=== PATIENT | female | born 1990 | race Hispanic/Latino ===

== ENCOUNTER 2017-11-09 12:00 | Emergency (ER) | payer MEDICAID ==
[~2017-11-09 12:00] MED LIST: METO5 PO
[2017-11-09 12:18] LABS: APPEARANCE,URINE Clear (CLEAR); BILIRUBIN,URINE Negative (NEGATIVE); COLOR,URINE Yellow (YELLOW); GLUCOSE, URINE (UA) >=1000 mg/dL (NEGATIVE); KETONES,URINE >=80 mg/dL (NEGATIVE); LEUKOCYTE ESTERASE ,URINE Negative (NEGATIVE); NITRATE,URINE Negative (NEGATIVE); OCCULT BLOOD,URINE Small (NEGATIVE); PROTEIN,URINE POS 2+ (NEGATIVE)
[2017-11-09 12:19] LABS: BACTERIA,URINE Rare /HPF (None Seen); RBC,URINE 0-1 /HPF (0-1); SQUAMOUS EPITHELIAL CELL,UR Rare /LPF (0-2); WBC,URINE 0-1 /HPF (0-1)
[2017-11-09] MEDS ORDERED: ONDANSETRON HCL 4 MG/2 ML VIAL ONE (12:23)
[2017-11-09] MEDS ORDERED: SODIUM CHLORIDE 0.9% 1000ML 2,000 ML IV ONE (12:23)
[2017-11-09 12:25] LABS: HCG,QUAL RESULT NEGATIVE (NEGATIVE)
[2017-11-09 12:28] LABS: BASOPHILS % (AUTO) 0.9 % (0.0-5.0); EOSINOPHILS % (AUTO) 0.3 % (0.0-8.0); HEMATOCRIT 37.5 % (36-48); LYMPHOCYTES % (AUTO) 14.1 % (21.0-51.0); MEAN CORPUSCULAR HEMOGLOBIN 29.9 pg (27.0-33.0); MEAN CORPUSCULAR HGB CONC 33.1 g/dL (32.0-36.0); MEAN CORPUSCULAR VOLUME 90.3 fL (79-99); MONOCYTES % (AUTO) 4.3 % (3.0-13.0); NEUTROPHILS % (AUTO) 80.4 % (40.0-77.0); PLATELET COUNT (AUTO) 451 K/uL (130-400); RED BLOOD CELL COUNT(AUTO) 4.15 MIL/uL (4.00-5.50); WHITE BLOOD COUNT (AUTO) 13.7 K/uL (4.8-10.8)
[2017-11-09 12:37] LABS: CREATININE 0.7 mg/dL (0.5-1.5); POTASSIUM 3.5 mmol/L (3.5-5.1)
[2017-11-09 12:41] LABS: ALBUMIN 3.4 g/dL (3.5-5.0); BILIRUBIN,TOTAL 0.3 mg/dL (0.2-1.0); TOTAL PROTEIN, SERUM 7.5 g/dL (6.0-8.3)
[2017-11-09 13:39] LABS: AMPHET/METH SCREEN,URINE NEGATIVE (NEGATIVE); BARBITURATE SCREEN, URINE NEGATIVE (NEGATIVE); BENZODIAZEPINES SCREEN,URINE NEGATIVE (NEGATIVE); CANNABINOID SCREEN,URINE POSITIVE (NEGATIVE); COCAINE SCREEN,URINE NEGATIVE (NEGATIVE); OPIATE SCREEN,URINE POSITIVE (NEGATIVE); PHENCYCLIDINE SCREEN,URINE NEGATIVE (NEGATIVE)
== END 2017-11-09 14:02 | disposition home or self-care (01) ==
LOC: EDH 12:00
DX: K86.1 Other chronic pancreatitis (principal); M54.9 Dorsalgia, unspecified; E11.9 Type 2 diabetes mellitus without complications
CPT/HCPCS: 36415; 80053; 80305; 81001; 81025; 83690; 85025; 96361; 96374; 99284; J2405; J7030

== ENCOUNTER 2017-12-01 18:12 | Inpatient (IN) | payer MEDICAID ==
[~2017-12-01] VITALS: Ht 147.3 cm; Wt 54.4 kg
[2017-12-01 18:56] LABS: BASOPHILS % (AUTO) 0.5 % (0.0-5.0); HEMATOCRIT 41.1 % (36-48); LYMPHOCYTES % (AUTO) 11.4 % (21.0-51.0); MEAN CORPUSCULAR HEMOGLOBIN 30.4 pg (27.0-33.0); MEAN CORPUSCULAR VOLUME 89.4 fL (79-99); MONOCYTES % (AUTO) 4.4 % (3.0-13.0); NEUTROPHILS % (AUTO) 83.7 % (40.0-77.0); PLATELET COUNT (AUTO) 394 K/uL (130-400); RED BLOOD CELL COUNT(AUTO) 4.59 MIL/uL (4.00-5.50); RED CELL DISTRIBUTION WIDTH 14.2 % (11.0-15.5); WHITE BLOOD COUNT (AUTO) 14.6 K/uL (4.8-10.8)
[2017-12-01] MEDS ORDERED: SODIUM CHLORIDE 0.9% 1000ML 2,000 ML IV ONE (19:09)
[2017-12-01] MEDS ORDERED: ONDANSETRON HCL 4 MG/2 ML VIAL ONE (19:09)
[2017-12-01] MEDS ORDERED: KETOROLAC TROMETHAMINE 30MG/ML ONE (19:09)
[2017-12-01 19:12] LABS: ALBUMIN 4.1 g/dL (3.5-5.0); BILIRUBIN,TOTAL 0.4 mg/dL (0.2-1.0); CREATININE 0.8 mg/dL (0.5-1.5); POTASSIUM 3.7 mmol/L (3.5-5.1); TOTAL PROTEIN, SERUM 7.8 g/dL (6.0-8.3)
[2017-12-01] MEDS ORDERED: MORPHINE SULFATE 4 MG/1ML SYG ONE (19:18)
[2017-12-01] MEDS ORDERED: MORPHINE SULFATE 2 MG/ML 1ML SYG ONE (21:53)
[2017-12-01 22:14] LABS: APPEARANCE,URINE Clear (CLEAR); BILIRUBIN,URINE Negative (NEGATIVE); COLOR,URINE Yellow (YELLOW); GLUCOSE, URINE (UA) >=1000 mg/dL (NEGATIVE); KETONES,URINE >=80 mg/dL (NEGATIVE); LEUKOCYTE ESTERASE ,URINE Negative (NEGATIVE); NITRATE,URINE Negative (NEGATIVE); OCCULT BLOOD,URINE Small (NEGATIVE); PROTEIN,URINE POS 2+ (NEGATIVE); UROBILINOGEN,URINE 0.2 mg/dL (0.2-1.0)
[2017-12-01 22:29] LABS: BACTERIA,URINE Few /HPF (None Seen); WBC,URINE 0-1 /HPF (0-1)
[2017-12-01 22:30] LABS: SQUAMOUS EPITHELIAL CELL,UR Few /LPF (0-2)
[2017-12-01 22:45] VITALS: BP 140/77
[2017-12-01] MEDS ORDERED: MORPHINE SULFATE 2 MG/ML 1ML SYG IM ONE (23:15)
[2017-12-01] MEDS ORDERED: MORPHINE SULFATE 2 MG/ML 1ML SYG IV ONE (23:45)
[2017-12-02] MEDS ORDERED: NITROGLYCERIN 0.4 MG SL TAB SL PRN (01:00)
[2017-12-02] MEDS ORDERED: GLUCAGON 1MG KIT 1 MG ML IM PRN (01:00)
[2017-12-02] MEDS ORDERED: POTASSIUM CHLORIDE 20 MEQ ERTAB PO PRN (01:00)
[2017-12-02] MEDS ORDERED: MORPHINE SULFATE 4 MG/1ML SYG IVP PRN (01:00)
[2017-12-02] MEDS: SODIUM CHLORIDE 0.9% 1000ML 1,000 ML IV SCH ×4 (01:00→21:00)
[2017-12-02] MEDS ORDERED: DEXTROSE 50%-WATER 50 ML DISP.SYRIN IV PRN (01:00)
[2017-12-02] MEDS ORDERED: SODIUM CHLORIDE 0.9% 10 ML VIAL IVP SCH (01:00)
[2017-12-02] MEDS ORDERED: HYDRALAZINE HCL 20 MG/ML VIAL IV PRN (01:00)
[2017-12-02] MEDS: LEVOFLOXACIN 500 MG/D5W 100 ML 100 ML IV SCH (01:32)
[2017-12-02] MEDS ORDERED: INSULIN HUMULIN R 100 UNIT/ML 3ML ONE (01:36)
[2017-12-02] MEDS: INSULIN HUMULIN R 100 UNIT/ML 3ML SQ SCH ×4 (01:38→21:21)
[2017-12-02] MEDS: ONDANSETRON HCL 4 MG/2 ML VIAL IVP PRN ×2 (02:32→21:11)
[2017-12-02 04:00] VITALS: BP 161/90
[2017-12-02] MEDS ORDERED: MORPHINE SULFATE 2 MG/ML 1ML SYG IVP PRN ×2 (04:00→14:45)
[2017-12-02 05:17] LABS: HEMATOCRIT 39.2 % (36-48); MEAN CORPUSCULAR HEMOGLOBIN 30.7 pg (27.0-33.0); MEAN CORPUSCULAR HGB CONC 33.4 g/dL (32.0-36.0); MEAN CORPUSCULAR VOLUME 91.8 fL (79-99); PLATELET COUNT (AUTO) 391 K/uL (130-400); RED BLOOD CELL COUNT(AUTO) 4.27 MIL/uL (4.00-5.50); RED CELL DISTRIBUTION WIDTH 14.1 % (11.0-15.5); WHITE BLOOD COUNT (AUTO) 16.2 K/uL (4.8-10.8)
[2017-12-02 05:34] LABS: ALBUMIN 4.1 g/dL (3.5-5.0); BILIRUBIN,TOTAL 0.4 mg/dL (0.2-1.0); POTASSIUM 3.3 mmol/L (3.5-5.1); TOTAL PROTEIN, SERUM 8.1 g/dL (6.0-8.3)
[2017-12-02] MEDS ORDERED: MEPERIDINE-PF 25 MG/ML SYG ONE (05:37)
[2017-12-02 08:00] VITALS: BP 140/89
[2017-12-02] MEDS: MEPERIDINE-PF 25 MG/ML SYG IVP PRN ×2 (08:58→12:02)
[2017-12-02] MEDS: ENOXAPARIN SODIUM 40 MG/0.4 ML SYRINGE SQ SCH (09:00)
[2017-12-02] MEDS: FAMOTIDINE/PF 20 MG/2 ML VIAL IV SCH ×2 (09:00→21:14)
[2017-12-02] MEDS ORDERED: FAMOTIDINE 20MG TAB 20 MG TAB PO SCH (09:00)
[2017-12-02] MEDS ORDERED: LIDOCAINE HCL-MPF 1% 2ML VIAL ONE (10:24)
[2017-12-02] MEDS: METOCLOPRAMIDE 10 MG/2 ML VIAL IVP SCH ×2 (11:30→16:15)
[2017-12-02 12:00] VITALS: BP 149/99
[2017-12-02] MEDS: POTASSIUM CHLORIDE 20MEQ/100ML 100 ML IV PRN (12:03)
[2017-12-02] MEDS ORDERED: PHARMACY COMMUNICATION MISC SCH (14:45)
[2017-12-02] MEDS ORDERED: MAGNESIUM CITRATE 296 ML SOLUTION PO ONE (14:45)
[2017-12-02] MEDS: MORPHINE SULFATE 4 MG/1ML SYG IV PRN ×4 (15:04→23:59)
[2017-12-02] MEDS ORDERED: COMPOUND PO MISCELLANEOUS 1 EACH MISC MISC PRN (15:15)
[2017-12-02 16:17] VITALS: BP 129/78
[2017-12-02] MEDS: LIDOCAINE HCL 2% VISCOUS 30 ML, MAG HYDROX/AL HYDROX/SIMETH 30 ML, DICYCLOMINE HCL 20 MG PO SCH ×6 (16:48→16:51)
[2017-12-02 19:50] VITALS: BP 137/77
[2017-12-02] MEDS ORDERED: INSULIN GLARGINE 100 UNITS/ML 10 ML VIAL SQ SCH (21:00)
[2017-12-03] MEDS: LEVOFLOXACIN 500 MG/D5W 100 ML 100 ML IV SCH
[2017-12-03 00:35] VITALS: BP 164/94
[2017-12-03] MEDS: MORPHINE SULFATE 4 MG/1ML SYG IV PRN ×2 (03:00→05:42)
[2017-12-03] MEDS: SODIUM CHLORIDE 0.9% 1000ML 1,000 ML IV SCH ×3 (03:07→11:02)
[2017-12-03 03:35] VITALS: BP 149/83
[2017-12-03] MEDS: ONDANSETRON HCL 4 MG/2 ML VIAL IVP PRN ×2 (05:45→18:22)
[2017-12-03] MEDS: INSULIN HUMULIN R 100 UNIT/ML 3ML SQ SCH ×4 (06:29→21:00)
[2017-12-03] MEDS: METOCLOPRAMIDE 10 MG/2 ML VIAL IVP SCH ×3 (07:30→18:14)
[2017-12-03 07:50] LABS: HEMATOCRIT 41.2 % (36-48); MEAN CORPUSCULAR HEMOGLOBIN 30.3 pg (27.0-33.0); MEAN CORPUSCULAR HGB CONC 33.3 g/dL (32.0-36.0); MEAN CORPUSCULAR VOLUME 91.1 fL (79-99); PLATELET COUNT (AUTO) 321 K/uL (130-400); RED BLOOD CELL COUNT(AUTO) 4.52 MIL/uL (4.00-5.50); RED CELL DISTRIBUTION WIDTH 13.8 % (11.0-15.5); WHITE BLOOD COUNT (AUTO) 11.1 K/uL (4.8-10.8)
[2017-12-03 08:59] VITALS: BP 159/79
[2017-12-03] MEDS: ENOXAPARIN SODIUM 40 MG/0.4 ML SYRINGE SQ SCH (09:00)
[2017-12-03 09:05] LABS: ALBUMIN 3.3 g/dL (3.5-5.0); BILIRUBIN,TOTAL 0.3 mg/dL (0.2-1.0); CREATININE 0.5 mg/dL (0.5-1.5); POTASSIUM 3.3 mmol/L (3.5-5.1); TOTAL PROTEIN, SERUM 6.8 g/dL (6.0-8.3)
[2017-12-03] MEDS: HYDROMORPHONE 1 MG/1 ML AMP IVP PRN ×5 (09:09→21:46)
[2017-12-03] MEDS: FAMOTIDINE/PF 20 MG/2 ML VIAL IV SCH ×2 (09:16→21:46)
[2017-12-03 17:12] VITALS: BP 135/78
[2017-12-03] MEDS: KETOROLAC TROMETHAMINE 15MG/ML IV PRN (19:56)
[2017-12-03 20:00] VITALS: BP 131/77
[2017-12-03] MEDS: INSULIN GLARGINE 100 UNITS/ML 10 ML VIAL SQ SCH (21:52)
[2017-12-03 23:44] VITALS: BP 99/62
[2017-12-04] MEDS: LEVOFLOXACIN 500 MG/D5W 100 ML 100 ML IV SCH (01:16)
[2017-12-04] MEDS: HYDROMORPHONE 1 MG/1 ML AMP IVP PRN ×3 (01:17→06:49)
[2017-12-04] MEDS: KETOROLAC TROMETHAMINE 15MG/ML IV PRN ×2 (03:26→09:45)
[2017-12-04] MEDS: SODIUM CHLORIDE 0.9% 1000ML 1,000 ML IV SCH ×5 (03:26→22:36)
[2017-12-04 04:00] VITALS: BP 134/75
[2017-12-04 04:53] LABS: CREATININE 0.6 mg/dL (0.5-1.5)
[2017-12-04 05:01] LABS: POTASSIUM 2.7 mmol/L (3.5-5.1)
[2017-12-04] MEDS ORDERED: LIDOCAINE HCL-MPF 1% 2ML VIAL ONE (05:38)
[2017-12-04] MEDS: POTASSIUM CHLORIDE 20MEQ/100ML 100 ML IV PRN ×2 (05:49→13:30)
[2017-12-04] MEDS: METOCLOPRAMIDE 10 MG/2 ML VIAL IVP SCH ×3 (06:14→16:43)
[2017-12-04] MEDS: INSULIN HUMULIN R 100 UNIT/ML 3ML SQ SCH ×4 (06:15→22:44)
[2017-12-04] MEDS ORDERED: BISACODYL 5 MG TABLET.DR PO PRN (08:45)
[2017-12-04] MEDS ORDERED: MAGNESIUM 2GM PREMIX 50ML 50 ML IV SCH (08:45)
[2017-12-04] MEDS ORDERED: TRAMADOL HCL 50 MG TABLET PO PRN (08:45)
[2017-12-04] MEDS: ENOXAPARIN SODIUM 40 MG/0.4 ML SYRINGE SQ SCH (09:00)
[2017-12-04 09:39] VITALS: BP 123/66
[2017-12-04] MEDS: FAMOTIDINE/PF 20 MG/2 ML VIAL IV SCH ×2 (09:45→22:36)
[2017-12-04] MEDS ORDERED: HYDROMORPHONE HCL 0.5 MG/0.5 ML ML ONE (10:44)
[2017-12-04 12:00] VITALS: BP 147/86
[2017-12-04] MEDS: SIMETHICONE 80 MG TAB.CHEW PO SCH ×3 (13:29→22:36)
[2017-12-04] MEDS: HYDROMORPHONE HCL 0.5 MG/0.5 ML ML IVP PRN ×3 (15:04→22:28)
[2017-12-04] MEDS: LIDOCAINE HCL 2% VISCOUS 30 ML, MAG HYDROX/AL HYDROX/SIMETH 30 ML, DICYCLOMINE HCL 20 MG PO SCH ×3 (16:42)
[2017-12-04 20:00] VITALS: BP 150/86
[2017-12-04] MEDS: INSULIN GLARGINE 100 UNITS/ML 10 ML VIAL SQ SCH (22:45)
[2017-12-04 23:59] VITALS: BP 149/92
[2017-12-05] MEDS: HYDROMORPHONE HCL 0.5 MG/0.5 ML ML IVP PRN ×7 (02:12→22:17)
[2017-12-05] MEDS: LEVOFLOXACIN 500 MG/D5W 100 ML 100 ML IV SCH (02:12)
[2017-12-05 03:54] LABS: CREATININE 0.8 mg/dL (0.5-1.5)
[2017-12-05 04:00] VITALS: BP 172/92
[2017-12-05 04:27] LABS: POTASSIUM 2.7 mmol/L (3.5-5.1)
[2017-12-05] MEDS ORDERED: LIDOCAINE HCL-MPF 1% 2ML VIAL ONE ×2 (05:08→15:36)
[2017-12-05] MEDS: POTASSIUM CHLORIDE 20MEQ/100ML 100 ML IV PRN ×2 (05:12→15:46)
[2017-12-05] MEDS: POTASSIUM CHLORIDE 10% ELIXIR 20 MEQ/15 ML UDCUP PO PRN ×3 (05:12→18:10)
[2017-12-05] MEDS: INSULIN HUMULIN R 100 UNIT/ML 3ML SQ SCH ×4 (06:13→22:31)
[2017-12-05] MEDS: METOCLOPRAMIDE 10 MG/2 ML VIAL IVP SCH ×3 (06:36→17:00)
[2017-12-05 08:00] VITALS: BP 176/100
[2017-12-05] MEDS: SIMETHICONE 80 MG TAB.CHEW PO SCH ×4 (08:43→22:17)
[2017-12-05] MEDS: ENOXAPARIN SODIUM 40 MG/0.4 ML SYRINGE SQ SCH (09:00)
[2017-12-05] MEDS ORDERED: NS-20 MEQ KCL 1000ML 1,000 ML IV SCH (09:30)
[2017-12-05 11:00] VITALS: BP 163/78
[2017-12-05] MEDS: FAMOTIDINE/PF 20 MG/2 ML VIAL IV SCH ×2 (11:20→22:17)
[2017-12-05 16:00] VITALS: BP 156/90
[2017-12-05 20:00] VITALS: BP 132/82
[2017-12-05] MEDS: INSULIN GLARGINE 100 UNITS/ML 10 ML VIAL SQ SCH (22:31)
[2017-12-06] VITALS: BP 154/98
[2017-12-06] MEDS ORDERED: NS-20 MEQ KCL 1000ML 1,000 ML IV SCH (01:00)
[2017-12-06] MEDS ORDERED: POTASSIUM CHLORIDE 20 MEQ in SODIUM CHLORIDE 0.9% 1000ML 1,000 ML IV SCH (01:00)
[2017-12-06] MEDS: HYDROMORPHONE HCL 0.5 MG/0.5 ML ML IVP PRN ×5 (01:20→16:12)
[2017-12-06] MEDS: ONDANSETRON HCL 4 MG/2 ML VIAL IVP PRN (01:40)
[2017-12-06 04:00] VITALS: BP 125/64
[2017-12-06 04:35] LABS: CREATININE 0.7 mg/dL (0.5-1.5); POTASSIUM 3.4 mmol/L (3.5-5.1)
[2017-12-06] MEDS: METOCLOPRAMIDE 10 MG/2 ML VIAL IVP SCH ×3 (07:30→17:00)
[2017-12-06] MEDS: INSULIN HUMULIN R 100 UNIT/ML 3ML SQ SCH ×2 (07:30→11:30)
[2017-12-06 08:00] VITALS: BP 130/78
[2017-12-06] MEDS: POTASSIUM CHLORIDE 10% ELIXIR 20 MEQ/15 ML UDCUP PO PRN (08:55)
[2017-12-06] MEDS: FAMOTIDINE/PF 20 MG/2 ML VIAL IV SCH (08:56)
[2017-12-06] MEDS: SIMETHICONE 80 MG TAB.CHEW PO SCH ×2 (08:57→13:00)
[2017-12-06] MEDS: ENOXAPARIN SODIUM 40 MG/0.4 ML SYRINGE SQ SCH (09:00)
[2017-12-06] MEDS ORDERED: ACETAMINOPHEN-CODEINE 300/30MG TAB PO PRN ×2 (09:45)
[2017-12-06 11:00] VITALS: BP 161/104
[2017-12-06 16:00] VITALS: BP 145/98
== END 2017-12-06 18:10 | disposition left against medical advice (07) | DRG 282 ==
LOC: EDH 18:12 → OBSVTOIN 18:13 → EDHIP 18:13 → 3DH 22:28
PROVIDERS: ADMIT Internal Medicine; ATTEND Internal Medicine
DX: K85.90 Acute pancreatitis without necrosis or infection, unspecified (principal); K31.84 Gastroparesis; E11.43 Type 2 diabetes mellitus with diabetic autonomic (poly)neuropathy; E11.65 Type 2 diabetes mellitus with hyperglycemia; K86.1 Other chronic pancreatitis; Z91.19 Patient's noncompliance with other medical treatment and regimen; F31.9 Bipolar disorder, unspecified; Z79.4 Long term (current) use of insulin; E87.6 Hypokalemia; K59.00 Constipation, unspecified; Z90.49 Acquired absence of other specified parts of digestive tract; F19.10 Other psychoactive substance abuse, uncomplicated; Z53.21 Procedure and treatment not carried out due to patient leaving prior to being seen by health care provider; Z28.21 Immunization not carried out because of patient refusal
CPT/HCPCS: 36415; 74176; 80048; 80053; 81001; 81025; 82150; 82948; 83690; 83735; 84132; 85025; 85027; J1170; J1650; J1815; J1885; J1956; J2175; J2270; J2405; J2765; J3475; J3480; J3490; J7030

== ENCOUNTER 2018-02-09 06:45 | Emergency (ER) | payer MEDICAID ==
[2018-02-09 07:18] LABS: BASOPHILS % (AUTO) 0.3 % (0.0-5.0); HEMATOCRIT 38.9 % (36-48); LYMPHOCYTES % (AUTO) 10.9 % (21.0-51.0); MEAN CORPUSCULAR HEMOGLOBIN 30.7 pg (27.0-33.0); MEAN CORPUSCULAR HGB CONC 34.7 g/dL (32.0-36.0); MEAN CORPUSCULAR VOLUME 88.6 fL (79-99); MONOCYTES % (AUTO) 3.6 % (3.0-13.0); NEUTROPHILS % (AUTO) 85.2 % (40.0-77.0); PLATELET COUNT (AUTO) 331 K/uL (130-400); RED BLOOD CELL COUNT(AUTO) 4.39 MIL/uL (4.00-5.50); RED CELL DISTRIBUTION WIDTH 13.3 % (11.0-15.5); WHITE BLOOD COUNT (AUTO) 16.8 K/uL (4.8-10.8)
[2018-02-09] MEDS ORDERED: ONDANSETRON HCL MDV 20ML 2 MG/ML VIAL ONE (07:26)
[2018-02-09] MEDS ORDERED: MORPHINE SULFATE 4 MG/1ML SYG ONE ×2 (07:26→08:23)
[2018-02-09] MEDS ORDERED: SODIUM CHLORIDE 0.9% 1000ML 1,000 ML IV ONE ×2 (07:26→08:53)
[2018-02-09 07:32] LABS: APPEARANCE,URINE Clear (CLEAR); BILIRUBIN,URINE Negative (NEGATIVE); COLOR,URINE Yellow (YELLOW); GLUCOSE, URINE (UA) >=1000 mg/dL (NEGATIVE); KETONES,URINE >=160 mg/dL (NEGATIVE); LEUKOCYTE ESTERASE ,URINE Negative (NEGATIVE); NITRATE,URINE Negative (NEGATIVE); OCCULT BLOOD,URINE Moderate (NEGATIVE); PROTEIN,URINE 300 (NEGATIVE); UROBILINOGEN,URINE 0.2 mg/dL (0.2-1.0)
[2018-02-09 07:34] LABS: AMPHET/METH SCREEN,URINE NEGATIVE (NEGATIVE); BARBITURATE SCREEN, URINE NEGATIVE (NEGATIVE); BENZODIAZEPINES SCREEN,URINE NEGATIVE (NEGATIVE); CANNABINOID SCREEN,URINE POSITIVE (NEGATIVE); COCAINE SCREEN,URINE NEGATIVE (NEGATIVE); OPIATE SCREEN,URINE NEGATIVE (NEGATIVE); PHENCYCLIDINE SCREEN,URINE NEGATIVE (NEGATIVE)
[2018-02-09 07:49] LABS: BACTERIA,URINE Rare /HPF (None Seen); SQUAMOUS EPITHELIAL CELL,UR Rare /HPF (0-2)
[2018-02-09 07:54] LABS: ALBUMIN 4.1 g/dL (3.5-5.0); BILIRUBIN,TOTAL 0.3 mg/dL (0.2-1.0); CREATININE 1.1 mg/dL (0.5-1.5); POTASSIUM 3.3 mmol/L (3.5-5.1)
[2018-02-09] MEDS ORDERED: INSULIN HUMULIN R 100 UNIT/ML 3ML ONE (08:10)
== END 2018-02-09 11:43 | disposition home or self-care (01) ==
LOC: EDH 06:45
DX: R11.2 Nausea with vomiting, unspecified (principal); F12.10 Cannabis abuse, uncomplicated; E11.65 Type 2 diabetes mellitus with hyperglycemia; Z90.49 Acquired absence of other specified parts of digestive tract; Z98.890 Other specified postprocedural states; Z72.0 Tobacco use
CPT/HCPCS: 36415; 76700; 80053; 80305; 81001; 81025; 82009; 82948; 83690; 85025; 96361; 96374; 96375; 96376; 99285; J1815; J2270 ×2; J7030 ×2

== ENCOUNTER 2018-04-07 21:14 | Emergency (ER) | payer MEDICAID | END 2018-04-07 21:40 | disposition home or self-care (01) | LOC: EDH 21:14 | DX: E11.65 Type 2 diabetes mellitus with hyperglycemia (principal) | CPT/HCPCS: 82948 ==

== ENCOUNTER 2018-07-02 00:29 | Day surgery (SDC) | payer MEDICAID ==
[~2018-07-02] VITALS: Ht 149.9 cm; Wt 64.9 kg
[2018-07-02] VITALS (16 sets, daily range): BP systolic 114–160; BP diastolic 76–106
[~2018-07-02 00:29] MED LIST changes: +INSU100I15 SQ; -METO5 PO
[2018-07-02 01:33] LABS: APPEARANCE,URINE Cloudy (CLEAR); BILIRUBIN,URINE Negative (NEGATIVE); COLOR,URINE Yellow (YELLOW); GLUCOSE, URINE (UA) 250 mg/dL (NEGATIVE); KETONES,URINE Negative (NEGATIVE); LEUKOCYTE ESTERASE ,URINE Negative (NEGATIVE); NITRATE,URINE Negative (NEGATIVE); OCCULT BLOOD,URINE Large (NEGATIVE); PROTEIN,URINE 300 (NEGATIVE); UROBILINOGEN,URINE 0.2 mg/dL (0.2-1.0)
[2018-07-02 01:46] LABS: BACTERIA,URINE Few /HPF (None Seen); WBC,URINE 0-1 /HPF (0-1)
[2018-07-02] MEDS ORDERED: SODIUM CHLORIDE 0.9% 1000ML 1,000 ML IV ONE ×2 (01:58→07:50)
[2018-07-02 02:05] LABS: BASOPHILS % (AUTO) 0.7 % (0.0-5.0); EOSINOPHILS % (AUTO) 1.9 % (0.0-8.0); HEMATOCRIT 35.2 % (36-48); MEAN CORPUSCULAR HEMOGLOBIN 30.2 pg (27.0-33.0); MEAN CORPUSCULAR HGB CONC 33.3 g/dL (32.0-36.0); MEAN CORPUSCULAR VOLUME 90.6 fL (79-99); MONOCYTES % (AUTO) 6.7 % (3.0-13.0); NEUTROPHILS % (AUTO) 62.7 % (40.0-77.0); PLATELET COUNT (AUTO) 304 K/uL (130-400); RED BLOOD CELL COUNT(AUTO) 3.88 MIL/uL (4.00-5.50); RED CELL DISTRIBUTION WIDTH 13.7 % (11.0-15.5); WHITE BLOOD COUNT (AUTO) 11.3 K/uL (4.8-10.8)
[2018-07-02 02:18] LABS: CREATININE 0.7 mg/dL (0.5-1.5); POTASSIUM 3.8 mmol/L (3.5-5.1)
[2018-07-02 02:21] LABS: INR 0.88 (0.85-1.15); PARTIAL THROMBOPLASTIN TIME 26.7 SEC (26.3-35.5); PROTHROMBIN TIME 9.3 SEC (9.6-11.6)
[2018-07-02 02:43] LABS: ALBUMIN 2.8 g/dL (3.5-5.0); BILIRUBIN,TOTAL 0.1 mg/dL (0.2-1.0); TOTAL PROTEIN, SERUM 6.8 g/dL (6.0-8.3)
[2018-07-02] MEDS ORDERED: CEFTRIAXONE SODIUM 1 GM ONE (03:46)
[2018-07-02] MEDS ORDERED: ONDANSETRON HCL 4 MG/2 ML VIAL ONE ×2 (03:46→10:22)
[2018-07-02] MEDS ORDERED: MORPHINE SULFATE 4 MG/1ML SYG ONE ×2 (03:47→06:07)
[2018-07-02] MEDS ORDERED: SODIUM CHLORIDE 0.9% 1000ML 1,000 ML IV SCH (06:00)
[2018-07-02] MEDS ORDERED: MEPERIDINE-PF 50 MG/ML SYG IM PRN (08:30)
[2018-07-02] MEDS ORDERED: PROMETHAZINE HCL 25 MG/ML 1ML AMPULE IM PRN (08:30)
[2018-07-02] MEDS ORDERED: PROMETHAZINE HCL 25 MG/ML 1ML AMPULE IM ONE (08:39)
[2018-07-02] MEDS ORDERED: MEPERIDINE-PF 50 MG/ML SYG ONE (08:40)
[2018-07-02 09:30] LABS: AMPHET/METH SCREEN,URINE NEGATIVE (NEGATIVE); BARBITURATE SCREEN, URINE NEGATIVE (NEGATIVE); BENZODIAZEPINES SCREEN,URINE NEGATIVE (NEGATIVE); CANNABINOID SCREEN,URINE POSITIVE (NEGATIVE); COCAINE SCREEN,URINE NEGATIVE (NEGATIVE); OPIATE SCREEN,URINE NEGATIVE (NEGATIVE); PHENCYCLIDINE SCREEN,URINE NEGATIVE (NEGATIVE)
[2018-07-02] MEDS ORDERED: PROPOFOL 10 MG/ML 20ML VIAL IV ONE ×2 (10:22→11:49)
[2018-07-02] MEDS ORDERED: SUCCINYLCHOLINE 200MG/10ML SYR ONE (10:22)
[2018-07-02] MEDS ORDERED: LIDOCAINE PF 2% 5ML ABBOJECT ONE (10:22)
[2018-07-02] MEDS ORDERED: CEFAZOLIN SODIUM 1 GM VIAL ONE (11:27)
[2018-07-02] MEDS ORDERED: MIDAZOLAM HCL 1 MG/ML 2ML VIAL ONE (11:32)
[2018-07-02] MEDS ORDERED: CEFAZOLIN SODIUM 1 GM VIAL IVP ONE (11:40)
[2018-07-02] MEDS ORDERED: SUB TO ALBUTEROL 2.5MG/3ML NEBULES PER P&T IH ONE (11:46)
[2018-07-02] MEDS ORDERED: FENTANYL CITRATE PF 50 MCG/1 ML 2ML VIAL ONE ×2 (12:41→12:53)
[2018-07-02] MEDS ORDERED: ACETAMINOPHEN-CODEINE 300/30MG TAB ONE (14:39)
== END 2018-07-02 14:30 | disposition home or self-care (01) ==
LOC: DAH 00:29 → EDH 00:29 → UNDOADMOB 00:30 → EDHIP 00:30 → UNDOADMOB 05:40 → WSH 08:05 → EDHIP 08:05 → DAH 14:30
PROVIDERS: ATTEND Obstetrics & Gynecology
DX: O03.4 Incomplete spontaneous abortion without complication (principal); E11.9 Type 2 diabetes mellitus without complications; E11.10 Type 2 diabetes mellitus with ketoacidosis without coma; I10 Essential (primary) hypertension; Z90.49 Acquired absence of other specified parts of digestive tract; Z98.890 Other specified postprocedural states; Z79.4 Long term (current) use of insulin; Z79.899 Other long term (current) drug therapy; K21.9 Gastro-esophageal reflux disease without esophagitis; Z87.891 Personal history of nicotine dependence
CPT/HCPCS: 36415; 59812; 76801; 80053; 80305; 81001; 82948 ×2; 83605; 84702; 85025; 85610; 85730; 86850; 86900; 86901; 87040 ×2; 88305; A4218; A4351; A4606; J0330; J0690 ×2; J0696; J2001; J2175; J2250; J2270 ×2; J2405 ×2; J2550; J2704 ×2; J3010 ×2; J7030 ×2

== ENCOUNTER 2018-08-28 05:49 | Emergency (ER) | payer MEDICAID ==
[2018-08-28] MEDS ORDERED: SODIUM CHLORIDE 0.9% 1000ML 1,000 ML IV ONE ×2 (06:00→06:49)
[2018-08-28] MEDS ORDERED: ONDANSETRON HCL 4 MG/2 ML VIAL ONE (06:00)
[2018-08-28 06:23] LABS: BASOPHILS % (AUTO) 1.2 % (0.0-5.0); EOSINOPHILS % (AUTO) 0.1 % (0.0-8.0); HEMATOCRIT 43.4 % (36-48); LYMPHOCYTES % (AUTO) 14.3 % (21.0-51.0); MEAN CORPUSCULAR HEMOGLOBIN 30.5 pg (27.0-33.0); MEAN CORPUSCULAR HGB CONC 33.6 g/dL (32.0-36.0); MEAN CORPUSCULAR VOLUME 90.7 fL (79-99); MONOCYTES % (AUTO) 4.8 % (3.0-13.0); NEUTROPHILS % (AUTO) 79.6 % (40.0-77.0); PLATELET COUNT (AUTO) 329 K/uL (130-400); RED BLOOD CELL COUNT(AUTO) 4.78 MIL/uL (4.00-5.50); RED CELL DISTRIBUTION WIDTH 13.2 % (11.0-15.5); WHITE BLOOD COUNT (AUTO) 13.1 K/uL (4.8-10.8)
[2018-08-28] MEDS ORDERED: HALOPERIDOL LACTATE 5 MG/ML VIAL ONE (06:23)
[2018-08-28 06:35] LABS: ALBUMIN 3.9 g/dL (3.5-5.0); BILIRUBIN,DIRECT 0.1 mg/dL (0.0-0.3); BILIRUBIN,TOTAL 0.7 mg/dL (0.2-1.0); CREATININE 1.4 mg/dL (0.5-1.5); POTASSIUM 3.9 mmol/L (3.5-5.1); TOTAL PROTEIN, SERUM 8.6 g/dL (6.0-8.3)
[2018-08-28 06:37] LABS: ABG OXYGEN SATURATION 74.3 % (95.0-99.0); BASE EXCESS,VENOUS BLOOD GAS -5.4 (-2.0-3.0); HCO3,VENOUS BLOOD GAS 20.2 (21.0-28.0); PCO2,VENOUS BLOOD GAS 40 (32-45); PH,VENOUS BLOOD GAS 7.323 (7.350-7.450)
[2018-08-28] MEDS ORDERED: INSULIN HUMULIN R 100 UNIT/ML 3ML ONE (06:49)
[2018-08-28 07:30] LABS: APPEARANCE,URINE Clear (CLEAR); BILIRUBIN,URINE Negative (NEGATIVE); COLOR,URINE Yellow (YELLOW); GLUCOSE, URINE (UA) >=1000 mg/dL (NEGATIVE); KETONES,URINE 40 mg/dL (NEGATIVE); LEUKOCYTE ESTERASE ,URINE Negative (NEGATIVE); NITRATE,URINE Negative (NEGATIVE); OCCULT BLOOD,URINE Moderate (NEGATIVE); PROTEIN,URINE 300 (NEGATIVE); UROBILINOGEN,URINE 0.2 mg/dL (0.2-1.0)
[2018-08-28 07:31] LABS: HCG,QUAL RESULT NEGATIVE (NEGATIVE)
[2018-08-28 07:33] LABS: BACTERIA,URINE Rare /HPF (None Seen); SQUAMOUS EPITHELIAL CELL,UR Few /HPF (0-2); WBC,URINE 0-1 /HPF (0-1)
[2018-08-28 07:36] LABS: AMPHET/METH SCREEN,URINE NEGATIVE (NEGATIVE); BARBITURATE SCREEN, URINE NEGATIVE (NEGATIVE); BENZODIAZEPINES SCREEN,URINE NEGATIVE (NEGATIVE); CANNABINOID SCREEN,URINE POSITIVE (NEGATIVE); COCAINE SCREEN,URINE NEGATIVE (NEGATIVE); OPIATE SCREEN,URINE NEGATIVE (NEGATIVE); PHENCYCLIDINE SCREEN,URINE NEGATIVE (NEGATIVE)
[2018-08-28] MEDS ORDERED: KETOROLAC TROMETHAMINE 30MG/ML ONE (07:39)
== END 2018-08-28 08:32 | disposition home or self-care (01) ==
LOC: EDH 05:49
DX: G89.29 Other chronic pain (principal); R10.13 Epigastric pain; R11.2 Nausea with vomiting, unspecified; E11.9 Type 2 diabetes mellitus without complications
CPT/HCPCS: 36415; 36600; 74176; 80048; 80076; 80305; 81001; 81025; 82435; 82550; 82803; 82947; 82948 ×2; 83605; 83690; 84132; 84295; 85025; 96361; 96374; 96375; 99285; J1630; J1815; J1885; J2405; J7030 ×2

== ENCOUNTER 2018-10-07 08:40 | Emergency (ER) | payer MEDICAID ==
[2018-10-07] MEDS ORDERED: KETOROLAC TROMETHAMINE 15MG/ML ONE (09:24)
[2018-10-07] MEDS ORDERED: SODIUM CHLORIDE 0.9% 1000ML 1,000 ML IV ONE ×2 (09:24→09:49)
[2018-10-07 09:28] LABS: APPEARANCE,URINE Clear (CLEAR); BILIRUBIN,URINE Negative (NEGATIVE); COLOR,URINE Yellow (YELLOW); GLUCOSE, URINE (UA) >=1000 mg/dL (NEGATIVE); KETONES,URINE 40 mg/dL (NEGATIVE); LEUKOCYTE ESTERASE ,URINE Negative (NEGATIVE); NITRATE,URINE Negative (NEGATIVE); OCCULT BLOOD,URINE Moderate (NEGATIVE); PROTEIN,URINE >=1000 (NEGATIVE); UROBILINOGEN,URINE 0.2 mg/dL (0.2-1.0)
[2018-10-07 09:31] LABS: HCG,QUAL RESULT NEGATIVE (NEGATIVE)
[2018-10-07 09:36] LABS: AMPHET/METH SCREEN,URINE NEGATIVE (NEGATIVE); BARBITURATE SCREEN, URINE NEGATIVE (NEGATIVE); BENZODIAZEPINES SCREEN,URINE POSITIVE (NEGATIVE); CANNABINOID SCREEN,URINE POSITIVE (NEGATIVE); COCAINE SCREEN,URINE NEGATIVE (NEGATIVE); OPIATE SCREEN,URINE NEGATIVE (NEGATIVE); PHENCYCLIDINE SCREEN,URINE NEGATIVE (NEGATIVE)
[2018-10-07 09:41] LABS: BASOPHILS % (AUTO) 1.4 % (0.0-5.0); HEMATOCRIT 42.1 % (36-48); LYMPHOCYTES % (AUTO) 14.5 % (21.0-51.0); MEAN CORPUSCULAR HEMOGLOBIN 29.9 pg (27.0-33.0); MEAN CORPUSCULAR HGB CONC 33.4 g/dL (32.0-36.0); MEAN CORPUSCULAR VOLUME 89.6 fL (79-99); MONOCYTES % (AUTO) 5.9 % (3.0-13.0); NEUTROPHILS % (AUTO) 78.2 % (40.0-77.0); PLATELET COUNT (AUTO) 369 K/uL (130-400); RED CELL DISTRIBUTION WIDTH 13.5 % (11.0-15.5); WHITE BLOOD COUNT (AUTO) 14.8 K/uL (4.8-10.8)
[2018-10-07 09:44] LABS: ALBUMIN 3.8 g/dL (3.5-5.0); BILIRUBIN,TOTAL 0.6 mg/dL (0.2-1.0); CREATININE 1.2 mg/dL (0.5-1.5); POTASSIUM 3.4 mmol/L (3.5-5.1); TOTAL PROTEIN, SERUM 8.3 g/dL (6.0-8.3)
[2018-10-07 09:54] LABS: BACTERIA,URINE Few /HPF (None Seen); HYALINE CASTS, URINE 0-1 /LPF (0-1 /LPF); MUCUS,URINE Rare LPF (None Seen); SQUAMOUS EPITHELIAL CELL,UR Few /HPF (0-2)
[2018-10-07] MEDS ORDERED: INSULIN HUMULIN R 100 UNIT/ML 3ML ONE (10:28)
[2018-10-07] MEDS ORDERED: IOHEXOL-350 75 ML VIAL IV ONE (10:28)
== END 2018-10-07 11:44 | disposition home or self-care (01) ==
LOC: EDH 08:40
DX: E11.65 Type 2 diabetes mellitus with hyperglycemia (principal); G89.29 Other chronic pain; R10.13 Epigastric pain; F41.9 Anxiety disorder, unspecified; Z79.4 Long term (current) use of insulin; Z90.49 Acquired absence of other specified parts of digestive tract; Z98.890 Other specified postprocedural states; Z72.0 Tobacco use
CPT/HCPCS: 36415; 74177; 80053; 80305; 81001; 81025; 82009; 82948; 83690; 85025; 96361; 96374; 96375; 99284; J1815; J1885; J7030 ×2; Q9967

== ENCOUNTER 2018-10-09 07:01 | Emergency (ER) | payer MEDICAID | END 2018-10-09 07:36 | disposition left against medical advice (07) | LOC: EDH 07:01 | DX: R10.13 Epigastric pain (principal); R63.0 Anorexia; R11.0 Nausea; F12.10 Cannabis abuse, uncomplicated; E11.9 Type 2 diabetes mellitus without complications; F41.9 Anxiety disorder, unspecified; Z90.49 Acquired absence of other specified parts of digestive tract | CPT/HCPCS: 99281 ==

== ENCOUNTER 2018-11-19 15:18 | Inpatient (IN) | payer MEDICAID | END 2018-11-23 09:30 | disposition left against medical advice (07) | LOC: EDH 15:18 → 3BH 11-20 14:06 → EDHIP 15:19 ==

== ENCOUNTER 2018-12-12 07:28 | Emergency (ER) | payer MEDICAID ==
[~2018-12-12 07:28] MED LIST changes: +ALPR1TAB2 PO; +QUET100T PO
[2018-12-12] MEDS ORDERED: ONDANSETRON HCL 4 MG/2 ML VIAL ONE (07:53)
[2018-12-12] MEDS ORDERED: SODIUM CHLORIDE 0.9% 1000ML 1,000 ML IV ONE ×2 (07:54→09:31)
[2018-12-12 08:05] LABS: BASOPHILS % (AUTO) 1.1 % (0.0-5.0); EOSINOPHILS % (AUTO) 0.1 % (0.0-8.0); HEMATOCRIT 42.4 % (36-48); LYMPHOCYTES % (AUTO) 20.3 % (21.0-51.0); MEAN CORPUSCULAR HEMOGLOBIN 29.8 pg (27.0-33.0); MEAN CORPUSCULAR HGB CONC 33.3 g/dL (32.0-36.0); MEAN CORPUSCULAR VOLUME 89.5 fL (79-99); MONOCYTES % (AUTO) 8.4 % (3.0-13.0); NEUTROPHILS % (AUTO) 70.1 % (40.0-77.0); PLATELET COUNT (AUTO) 436 K/uL (130-400); RED BLOOD CELL COUNT(AUTO) 4.74 MIL/uL (4.00-5.50); RED CELL DISTRIBUTION WIDTH 14.3 % (11.0-15.5); WHITE BLOOD COUNT (AUTO) 11.6 K/uL (4.8-10.8)
[2018-12-12 08:31] LABS: ALBUMIN 4.2 g/dL (3.5-5.0); BILIRUBIN,TOTAL 0.6 mg/dL (0.2-1.0); POTASSIUM 3.4 mmol/L (3.5-5.1); TOTAL PROTEIN, SERUM 8.9 g/dL (6.0-8.3)
[2018-12-12 08:36] LABS: INR 0.92 (0.85-1.15); PARTIAL THROMBOPLASTIN TIME 24.5 SEC (26.3-35.5); PROTHROMBIN TIME 9.7 SEC (9.6-11.6)
[2018-12-12] MEDS ORDERED: INSULIN HUMULIN R 100 UNIT/ML 3ML ONE (09:32)
[2018-12-12] MEDS ORDERED: POTASSIUM CHLORIDE 20 MEQ ERTAB PO ONE (09:33)
== END 2018-12-12 10:56 | disposition home or self-care (01) ==
LOC: EDH 07:28
DX: E11.65 Type 2 diabetes mellitus with hyperglycemia (principal); R10.84 Generalized abdominal pain; E86.0 Dehydration; F41.9 Anxiety disorder, unspecified; F12.10 Cannabis abuse, uncomplicated; Z90.49 Acquired absence of other specified parts of digestive tract
CPT/HCPCS: 36415; 80053; 82150; 82270; 82948; 83690; 84484; 85025; 85610; 85730; 93005; 96361; 96374; 96375; 99284; J1815; J2405; J7030 ×2

== ENCOUNTER 2019-06-30 09:37 | Emergency (ER) | payer MEDICAID ==
[2019-06-30 10:02] LABS: BASOPHILS % (AUTO) 0.9 % (0.0-5.0); EOSINOPHILS % (AUTO) 0.9 % (0.0-8.0); HEMATOCRIT 43.9 % (36-48); LYMPHOCYTES % (AUTO) 13.3 % (21.0-51.0); MEAN CORPUSCULAR HEMOGLOBIN 30.9 pg (27.0-33.0); MEAN CORPUSCULAR HGB CONC 33.5 g/dL (32.0-36.0); MEAN CORPUSCULAR VOLUME 92.3 fL (79-99); MONOCYTES % (AUTO) 5.4 % (3.0-13.0); NEUTROPHILS % (AUTO) 79.5 % (40.0-77.0); PLATELET COUNT (AUTO) 304 K/uL (130-400); RED BLOOD CELL COUNT(AUTO) 4.75 MIL/uL (4.00-5.50); RED CELL DISTRIBUTION WIDTH 13.5 % (11.0-15.5)
[2019-06-30] MEDS ORDERED: ONDANSETRON HCL 4 MG/2 ML VIAL ONE (10:09)
[2019-06-30] MEDS ORDERED: DICYCLOMINE HCL 10 MG/ML 2ML AMP IM ONE (10:09)
[2019-06-30] MEDS ORDERED: MORPHINE SULFATE 4 MG/1ML SYG ONE (10:10)
[2019-06-30 10:15] LABS: BILIRUBIN,TOTAL 0.4 mg/dL (0.2-1.0); CREATININE 1.1 mg/dL (0.5-1.5); POTASSIUM 3.6 mmol/L (3.5-5.1); TOTAL PROTEIN, SERUM 8.3 g/dL (6.0-8.3)
[2019-06-30 10:30] LABS: INR 0.89 (0.85-1.15); PROTHROMBIN TIME 9.4 SEC (9.6-11.6)
[2019-06-30 10:39] LABS: APPEARANCE,URINE Clear (CLEAR); BILIRUBIN,URINE Negative (NEGATIVE); COLOR,URINE Yellow (YELLOW); GLUCOSE, URINE (UA) >=1000 mg/dL (NEGATIVE); KETONES,URINE 40 mg/dL (NEGATIVE); LEUKOCYTE ESTERASE ,URINE Negative (NEGATIVE); NITRATE,URINE Negative (NEGATIVE); OCCULT BLOOD,URINE Moderate (NEGATIVE); PROTEIN,URINE 300 mg/dL (NEGATIVE); UROBILINOGEN,URINE 0.2 mg/dL (0.2-1.0)
[2019-06-30 10:41] LABS: HCG,QUAL RESULT NEGATIVE (NEGATIVE)
[2019-06-30 10:48] LABS: AMPHET/METH SCREEN,URINE NEGATIVE (NEGATIVE); BARBITURATE SCREEN, URINE NEGATIVE (NEGATIVE); BENZODIAZEPINES SCREEN,URINE POSITIVE (NEGATIVE); CANNABINOID SCREEN,URINE POSITIVE (NEGATIVE); COCAINE SCREEN,URINE POSITIVE (NEGATIVE); OPIATE SCREEN,URINE NEGATIVE (NEGATIVE); PHENCYCLIDINE SCREEN,URINE NEGATIVE (NEGATIVE)
[2019-06-30] MEDS ORDERED: HALOPERIDOL LACTATE 5 MG/ML VIAL ONE (10:55)
[2019-06-30] MEDS ORDERED: INSULIN HUMULIN R 100 UNIT/ML 3ML ONE (10:56)
[2019-06-30 11:07] LABS: WBC,URINE None Seen /HPF (0-1)
[2019-06-30 11:08] LABS: BACTERIA,URINE None Seen /HPF (None Seen)
== END 2019-06-30 11:20 | disposition left against medical advice (07) ==
LOC: EDH 09:37
DX: R10.13 Epigastric pain (principal); R11.2 Nausea with vomiting, unspecified
CPT/HCPCS: 36415; 80053; 80305; 81001; 81025; 82010; 82948; 83605; 83690; 84484; 85025; 85610; 85730; 96372; 96374; 96375; 99284; J0500; J1630; J1815; J2270; J2405

== ENCOUNTER 2020-03-17 16:29 | Inpatient (IN) | payer MEDICAID ==
[~2020-03-17] VITALS: Ht 152.4 cm; Wt 57.9 kg
[2020-03-17] MEDS ORDERED: ONDANSETRON HCL 4 MG/2 ML VIAL ONE ×2 (17:52→20:31)
[2020-03-17] MEDS ORDERED: MORPHINE SULFATE 4 MG/1ML SYG ONE ×2 (17:52→20:32)
[2020-03-17 17:53] LABS: BASOPHILS % (AUTO) 0.4 % (0.0-5.0); EOSINOPHILS % (AUTO) 1.5 % (0.0-8.0); HEMATOCRIT 37.8 % (36-48); LYMPHOCYTES % (AUTO) 20.4 % (21.0-51.0); MEAN CORPUSCULAR HEMOGLOBIN 30.2 pg (27.0-33.0); MEAN CORPUSCULAR HGB CONC 32.8 g/dL (32.0-36.0); MEAN CORPUSCULAR VOLUME 92.2 fL (79-99); MONOCYTES % (AUTO) 6.5 % (3.0-13.0); NEUTROPHILS % (AUTO) 70.9 % (40.0-77.0); PLATELET COUNT (AUTO) 326 K/uL (130-400); RED CELL DISTRIBUTION WIDTH 13.1 % (11.0-15.5); WHITE BLOOD COUNT (AUTO) 12.7 K/uL (4.8-10.8)
[2020-03-17 18:01] LABS: APPEARANCE,URINE Clear (CLEAR); BILIRUBIN,URINE Negative (NEGATIVE); COLOR,URINE Yellow (YELLOW); GLUCOSE, URINE (UA) >=1000 mg/dL (NEGATIVE); KETONES,URINE Negative (NEGATIVE); LEUKOCYTE ESTERASE ,URINE Negative (NEGATIVE); NITRATE,URINE Negative (NEGATIVE); OCCULT BLOOD,URINE Moderate (NEGATIVE); PH,URINE 5.5 (5.0-8.0); PROTEIN,URINE POS 2+ mg/dL (NEGATIVE); UROBILINOGEN,URINE 0.2 mg/dL (0.2-1.0)
[2020-03-17 18:02] LABS: HCG,QUAL RESULT NEGATIVE (NEGATIVE)
[2020-03-17 18:07] LABS: AMPHET/METH SCREEN,URINE NEGATIVE (NEGATIVE); BARBITURATE SCREEN, URINE NEGATIVE (NEGATIVE); BENZODIAZEPINES SCREEN,URINE POSITIVE (NEGATIVE); CANNABINOID SCREEN,URINE POSITIVE (NEGATIVE); COCAINE SCREEN,URINE NEGATIVE (NEGATIVE); OPIATE SCREEN,URINE NEGATIVE (NEGATIVE); PHENCYCLIDINE SCREEN,URINE NEGATIVE (NEGATIVE)
[2020-03-17 18:47] LABS: BACTERIA,URINE Rare /HPF (None Seen); MUCUS,URINE Few LPF (None Seen); SQUAMOUS EPITHELIAL CELL,UR Few /HPF (0-2)
[2020-03-17] MEDS ORDERED: KETAMINE 50MG/ML SYRINGE 50 MG/ML DISP.SYRIN IV ONE (19:49)
[2020-03-17 20:10] LABS: CARBON DIOXIDE 30 mmol/L (21-32); CHLORIDE 102 mmol/L (101-111); CREATININE 0.9 mg/dL (0.5-1.5); GLOMERULAR FILTR. RATE CALC 80 mL/min (>60); GLUCOSE,RANDOM 300 mg/dL (70-105); POTASSIUM 4.2 mmol/L (3.5-5.1); SODIUM SERUM 138 mmol/L (136-145); UREA NITROGEN, BLOOD 9 mg/dL (7-18)
[2020-03-17 20:14] LABS: ALANINE AMINOTRANSFERASE 24 U/L (12-78); ALBUMIN 3.4 g/dL (3.5-5.0); ASPARTATE AMINOTRANSFERASE 17 U/L (10-37); BILIRUBIN,DIRECT < 0.1 mg/dL (0.0-0.3); BILIRUBIN,TOTAL 0.1 mg/dL (0.2-1.0); LIPASE 658 U/L (114-286)
[2020-03-17] MEDS ORDERED: DEXTROSE 50%-WATER 50 ML DISP.SYRIN IV PRN (22:45)
[2020-03-17] MEDS ORDERED: GLUCAGON 1MG KIT 1 MG ML IM PRN (22:45)
[2020-03-17] MEDS ORDERED: KETOROLAC TROMETHAMINE 15MG/ML IV PRN (22:45)
[2020-03-17] MEDS ORDERED: HYDRALAZINE HCL 20 MG/ML VIAL IV PRN (23:00)
[2020-03-17] MEDS ORDERED: HYDRALAZINE HCL 20 MG/ML VIAL ONE (23:06)
[2020-03-17] MEDS ORDERED: KETOROLAC TROMETHAMINE 15MG/ML ONE (23:06)
[2020-03-18] VITALS (8 sets, daily range): BP systolic 87–146; BP diastolic 54–91
[2020-03-18] MEDS: SODIUM CHLORIDE 0.9% 1000ML 1,000 ML IV SCH ×3 (00:44→21:37)
[2020-03-18] MEDS: INSULIN HUMULIN R 100 UNIT/ML 3ML SQ SCH ×5 (00:44→21:45)
[2020-03-18] MEDS ORDERED: HYDROMORPHONE HCL 0.5 MG/0.5 ML ML ONE (00:54)
--- NOTE | 2020-03-18 01:03 | NUR ---
PATIENT WAS RECEIVED FROM ER, DX ACUTE PANCREATITIS. PATIENT ARRIVED TO ROOM CRYING, SCREAMING THAT SHE IS PAIN. I CALLED [facility] HE[facility] CARE TECHNICIAN, UPDATED ON STATUS. I INFORMED HER THE TORADOL OR THE MORPHINE ARE NOT RELIEVING PATIENT'S PAIN. PT CONTINUES TO SCREAM AND CRY IN PAIN. NEW ORDERS RECEIVED FOR DILAUDID 0.5 MG IV Q 3 HR PRN PAIN. PT INFORMED OF NEW ORDERS. IMMEDIATELY AFTER ADMINISTERING MEDICATION PATIENT CALMED DOWN. WILL CONT TO MONITOR CLOSELY.
[2020-03-18 04:13] LABS: BASOPHILS % (AUTO) 0.5 % (0.0-5.0); EOSINOPHILS % (AUTO) 1.3 % (0.0-8.0); LYMPHOCYTES % (AUTO) 30.3 % (21.0-51.0); MEAN CORPUSCULAR HEMOGLOBIN 29.8 pg (27.0-33.0); MEAN CORPUSCULAR HGB CONC 32.7 g/dL (32.0-36.0); MEAN CORPUSCULAR VOLUME 91.2 fL (79-99); MONOCYTES % (AUTO) 8.1 % (3.0-13.0); NEUTROPHILS % (AUTO) 59.4 % (40.0-77.0); PLATELET COUNT (AUTO) 342 K/uL (130-400); RED BLOOD CELL COUNT(AUTO) 3.62 MIL/uL (4.00-5.50); WHITE BLOOD COUNT (AUTO) 11.2 K/uL (4.8-10.8)
[2020-03-18 04:29] LABS: ALBUMIN 2.6 g/dL (3.5-5.0); BILIRUBIN,TOTAL 0.1 mg/dL (0.2-1.0); POTASSIUM 3.9 mmol/L (3.5-5.1); TOTAL PROTEIN, SERUM 5.4 g/dL (6.0-8.3)
[2020-03-18 04:34] LABS: HEMOGLOBIN A1C 9.2 % (4.0-6.0)
[2020-03-18] MEDS: HYDROMORPHONE 1 MG/1 ML AMP IVP PRN ×5 (04:37→22:46)
[2020-03-18] MEDS: ONDANSETRON HCL 4 MG/2 ML VIAL IV PRN ×2 (04:37→23:44)
[2020-03-18] MEDS: METRONIDAZOLE 500MG/100ML BAG 100 ML IV SCH ×3 (05:27→21:37)
[2020-03-18] MEDS: PANTOPRAZOLE 40 MG/VIAL IVP SCH ×2 (09:25→21:38)
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
[2020-03-18] MEDS: ALPRAZOLAM 0.5 MG TABLET PO PRN (12:07)
--- NOTE | 2020-03-18 13:36 | NUR ---
Per Dr. Last, will place patient on vancomycin per pharmacy protocol and to leave to Radiologist's discretion whether to proceed with permacath placement. Notified Magalie from [employer]. Delmis spoke with Dr. Costa to notify of vancomycin, per Dr. Costa will wait on permacath placement after patient has received a few days of antibiotic and recommends permacath placement before discharge. Paged Dr. Mendiola to notify of permacath placement delay.
[2020-03-18] MEDS: INSULIN GLARGINE 100 UNITS/ML 10 ML VIAL SQ SCH (21:48)
[2020-03-19 03:58] VITALS: BP 138/84
[2020-03-19] MEDS: ONDANSETRON HCL 4 MG/2 ML VIAL IV PRN ×3 (04:13→15:46)
[2020-03-19] MEDS: HYDROMORPHONE 1 MG/1 ML AMP IVP PRN ×5 (04:15→19:56)
[2020-03-19] MEDS: SODIUM CHLORIDE 0.9% 1000ML 1,000 ML IV SCH (04:18)
[2020-03-19 04:55] LABS: BASOPHILS % (AUTO) 0.4 % (0.0-5.0); EOSINOPHILS % (AUTO) 3.4 % (0.0-8.0); HEMATOCRIT 31.5 % (36-48); LYMPHOCYTES % (AUTO) 45.5 % (21.0-51.0); MEAN CORPUSCULAR HEMOGLOBIN 29.9 pg (27.0-33.0); MEAN CORPUSCULAR HGB CONC 32.1 g/dL (32.0-36.0); MEAN CORPUSCULAR VOLUME 93.2 fL (79-99); MONOCYTES % (AUTO) 6.9 % (3.0-13.0); NEUTROPHILS % (AUTO) 43.7 % (40.0-77.0); PLATELET COUNT (AUTO) 286 K/uL (130-400); RED BLOOD CELL COUNT(AUTO) 3.38 MIL/uL (4.00-5.50); RED CELL DISTRIBUTION WIDTH 13.2 % (11.0-15.5)
[2020-03-19 05:16] LABS: CARBON DIOXIDE 27 mmol/L (21-32); CHLORIDE 108 mmol/L (101-111); CREATININE 0.8 mg/dL (0.5-1.5); GLOMERULAR FILTR. RATE CALC 91 mL/min (>60); GLUCOSE,RANDOM 132 mg/dL (70-105); LIPASE 1319 U/L (114-286); POTASSIUM 3.6 mmol/L (3.5-5.1); SODIUM SERUM 141 mmol/L (136-145); UREA NITROGEN, BLOOD 9 mg/dL (7-18)
[2020-03-19] MEDS: METRONIDAZOLE 500MG/100ML BAG 100 ML IV SCH (05:56)
[2020-03-19] MEDS: INSULIN HUMULIN R 100 UNIT/ML 3ML SQ SCH ×3 (06:03→16:30)
[2020-03-19 08:00] VITALS: BP 122/71
[2020-03-19] MEDS: PANTOPRAZOLE 40 MG/VIAL IVP SCH (08:37)
[2020-03-19] MEDS: ALPRAZOLAM 0.5 MG TABLET PO PRN (09:22)
[2020-03-19 11:00] VITALS: BP 139/78
[2020-03-19] MEDS: SENNOSIDES 8.6 MG TABLET PO SCH (11:38)
[2020-03-19] MEDS: POLYETHYLENE GLYCOL 3350 17 GM POWD.PACK PO SCH (11:38)
[2020-03-19] MEDS: LACTATED RINGERS 1000ML 1,000 ML IV SCH ×2 (12:28→23:05)
[2020-03-19] MEDS ORDERED: ACETAMINOPHEN 325 MG TAB PO PRN (14:15)
[2020-03-19] MEDS: ACETAMINOPHEN 325 MG TAB PO PRN (14:40)
[2020-03-19 16:00] VITALS: BP 137/76
--- NOTE | 2020-03-19 17:29 | NUR ---
EMILY NOTE MET W PATIENT FOR DISCHARGE PLANNING: LIVES WITH BOYFRIEND, DECLINES TO GIVE HIS NAME , ADDRESS OR PHONE NUMBER, STATES [facility]HELLE B[facility] ON [facility] WILL PROVIDE TRANSPORT- UPDATE [facility] W MOMJac NUMBER [phone] STATES NO DME, NO HH, NO SERVICES, DENIES DRUG USE OR MARIJUANA USE- DOES NOT WANT ANY INFORMATION ON DRUG/ETH REHAB SERVICES Addendum: 03/19/20 at 1734 by PORTIA ORLANDO RN CM Amended: Links added.
--- NOTE | 2020-03-19 17:34 | NUR ---
EXPECT DC WILL BE TO HOME , NO SERVICES Addendum: 03/19/20 at 1735 by PORTIA ORLANDO RN CM Amended: Links added.
--- NOTE | 2020-03-19 19:56 | NUR ---
ASSESS RECEIVED PT VERY AGITATED, WALKING AROUND IN ROOM AND CRYING. CLAIMS OF ABDOMINAL PAINS. SHIFT ASSESSMENT DONE, PLEASE REFER TO CHART. MEDICATED WITH DILAUDID IV. PLACED BACK PT ON IVF OF LR REGULATED AT 150CC/HR. PT WANTED TO SHOWER AND INSTRUCTED TO STAY IN BED FOR NOW PAIN MED WAS JUST ADMINISTERED. Addendum: 03/20/20 at 0106 by DARLYN CHRISTIE RN RN Amended: Links added.
[2020-03-19] MEDS: PANTOPRAZOLE SODIUM 40 MG TABLET.DR PO SCH (19:58)
[2020-03-19 20:13] VITALS: BP 145/110
--- NOTE | 2020-03-19 20:30 | NUR ---
SHOWER PT DISCONNECTED HERSELF FROM HER IV WITHOUT CALLING STAFF AND WENT TO SHOWER. PT IS SITTING ON THE SHOWER CHAIR AND LET THE WATER RAN THROUGH HER. WILL MONITOR CLOSELY.
[2020-03-19] MEDS: INSULIN GLARGINE 100 UNITS/ML 10 ML VIAL SQ SCH (21:00)
--- NOTE | 2020-03-19 21:13 | NUR ---
PAIN PT IS CRYING OF ABDOMINAL PAINS. ANA SWANSON NP WOOD SHINGLE ROOFER FOR HOSPITALIST, VIA ANSWERING SERVICE. WAREHOUSE TECHNICIAN CALLED BACK AND REFERRED PT'S PAINS. NEW MEDS ADMINISTERED, TOLERATED WELL. MEDICATED PT WITH ONE TIME DOSE OF DILAUDID IV 0.5MG. WILL RE-ASSESS PT.
--- NOTE | 2020-03-19 21:30 | NUR ---
SHOWER PT DISCONNECTED HERSELF AGAIN FROM HER IV WITHOUT ASKING STAFF FOR HELP. PT HAD HERSELF IN THE SHOWER AGAIN.
[2020-03-19] MEDS ORDERED: LORAZEPAM 2 MG/ML 1 ML VIAL IVP ONE (22:20)
[2020-03-19] MEDS ORDERED: HYDROMORPHONE 1 MG/1 ML AMP IVP ONE (22:20)
[2020-03-19] MEDS ORDERED: LORAZEPAM 2 MG/ML 1 ML VIAL ONE (23:39)
[2020-03-19 23:42] VITALS: BP 136/79
--- NOTE | 2020-03-19 23:45 | NUR ---
AGITATION PT CALLS AND CLAIMS OF HAVING A LOT OF PAINS, NOTED TO BE VERY AGITATED ROCKING HERSELF IN BED. EXPLAINED THAT PAIN MEDICATION IS NOT DUE BUT ATIVAN CAN BE GIVEN, PT AGREED. MEDICATED PT. WILL RE-ASSESS PT.
--- NOTE | 2020-03-20 00:30 | NUR ---
SHOWER PT HAD ANOTHER SHOWER AND PCP ASKED PT TO STEP OUT FOR BLOOD GLUCOSE CHECK. PLACED BACK ON IVF. WILL MONITOR PT.
[2020-03-20] MEDS: HYDROMORPHONE 1 MG/1 ML AMP IVP PRN ×6 (02:58→21:34)
[2020-03-20] MEDS: LACTATED RINGERS 1000ML 1,000 ML IV SCH ×2 (02:58→17:52)
--- NOTE | 2020-03-20 02:58 | NUR ---
PAIN PT AWAKENS AND CALLS FOR PAIN MEDICATION. SEEN ROCKING HERSELF IN BED. MEDICATED WITH DILAUDID IV. KEPT COMFORTABLE IN BED. WILL RE-ASSESS PT.
[2020-03-20] MEDS: ONDANSETRON HCL 4 MG/2 ML VIAL IV PRN (03:24)
--- NOTE | 2020-03-20 03:28 | NUR ---
EMESIS PT CALLS AND CLAIMS OF NAUSEA, DRY HEAVING NOTED. MEDICATED WITH ZOFRAN IV. WILL RE-ASSESS PT.
[2020-03-20 03:41] VITALS: BP 141/94
--- NOTE | 2020-03-20 03:50 | NUR ---
SHOWER PT JUST HAD ANOTHER SHOWER AND IS NOW BACK IN BED. PT ASKING FOR ATIVAN IV BUT EXPLAINED THAT SHE ALREADY HAD A DOSE LAST NIGHT AND IS A ONE TIME DOSE ONLY. OFFERED XANAX DOSE BUT REFUSED.
--- NOTE | 2020-03-20 04:47 | NUR ---
PAGED PT CALLS AND WANTS ANXIETY MEDICATION BUT NOTHING PO. PT CLAIMS SHE COULD NOT TOLERATE PO MEDS BUT CALLS FOR ICE CHIPS. PAGED ЕЛЕНА SWANSON HUMAN INTELLIGENCE FOR HOSPITALIST, VIA ANSWERING SERVICE. CLOSED CIRCUIT SCREEN WATCHER CALLED BACK AND REFERRED PT'S REQUEST. NEW MED ORDER GIVEN, PLEASE REFER TO CPOE. WILL MEDICATE PT.
[2020-03-20] MEDS ORDERED: LORAZEPAM 2 MG/ML 1 ML VIAL ONE (05:00)
[2020-03-20] MEDS ORDERED: LORAZEPAM 2 MG/ML 1 ML VIAL IVP ONE (05:00)
[2020-03-20] MEDS: INSULIN HUMULIN R 100 UNIT/ML 3ML SQ SCH ×4 (06:00→18:00)
--- NOTE | 2020-03-20 06:00 | NUR ---
PAIN PT CALLS FOR PAIN MEDICATION. EXPLAINED THAT IT IS NOT DUE AT THIS TIME. PT IS VERY RUDE TO STAFF AND BANGED HER DOOR. WILL RE-CHECK ON PT.
[2020-03-20 06:22] LABS: CREATININE 0.8 mg/dL (0.5-1.5); POTASSIUM 3.5 mmol/L (3.5-5.1)
--- NOTE | 2020-03-20 06:25 | NUR ---
SHOWER PT WENT TO THE SHOWER AGAIN SHE CLAIMS THE WATER CALMS HER DOWN. WILL GIVE PT'S DILAUDID WHEN DUE.
[2020-03-20 08:00] VITALS: BP 136/72
[2020-03-20] MEDS: PANTOPRAZOLE SODIUM 40 MG TABLET.DR PO SCH ×2 (08:38→21:00)
[2020-03-20] MEDS: SENNOSIDES 8.6 MG TABLET PO SCH (08:38)
[2020-03-20] MEDS: POLYETHYLENE GLYCOL 3350 17 GM POWD.PACK PO SCH (08:38)
[2020-03-20 08:43] LABS: ALANINE AMINOTRANSFERASE 25 U/L (12-78); ALBUMIN 3.1 g/dL (3.5-5.0); ASPARTATE AMINOTRANSFERASE 20 U/L (10-37); BILIRUBIN,DIRECT < 0.1 mg/dL (0.0-0.3); BILIRUBIN,TOTAL 0.2 mg/dL (0.2-1.0); TOTAL PROTEIN, SERUM 6.4 g/dL (6.0-8.3)
[2020-03-20] MEDS: ALPRAZOLAM 0.5 MG TABLET PO PRN (09:03)
[2020-03-20 09:10] LABS: CHOLESTEROL 163 mg/dL (<200); HDL CHOLESTEROL 108 mg/dL (35-85); LDL DIRECT 92 mg/dL (0-99); TRIGLYCERIDES 137 mg/dL (30-200)
--- NOTE | 2020-03-20 10:20 | NUR ---
PSYCH CONSULT CALLED DR. PORTER REGARDING CONSULT. NO ANSWER, MESSAGE LEFT. PENDING CALL BACK.
--- NOTE | 2020-03-20 10:30 | NUR ---
GI CONSULT FAXED PATIENT'S INFORMATION TO MD'S OFFICE. PENDING CALL BACK.
[2020-03-20 11:00] VITALS: BP 115/75
--- NOTE | 2020-03-20 11:50 | NUR ---
RE-PAGED DR. PORTER, NO ANSWER AT THIS TIME.
--- NOTE | 2020-03-20 13:42 | NUR ---
CALL RECEIVED FROM DR. PORTER, WILL NOT BE ABLE TO SEE PATIENT OVER THE WEEKEND . WILL FOLLOW UP WITH PATIENT ON SUNDAY.
--- NOTE | 2020-03-20 15:53 | NUR ---
CALL RECEIVED FROM DR. HINKLE, NO NEED FOR CONSULT FOR PANCREATITIS. LIPASE WILL COME DOWN LONG PATIENT CONTINUES WITH IV FLUIDS.
[2020-03-20 16:00] VITALS: BP 123/71
[2020-03-20 20:00] VITALS: BP 138/78
--- NOTE | 2020-03-20 20:25 | NUR ---
INCIDENT PT REQUESTING PAIN MED. INFORMED PT THAT IT IS CURRENTLY NOT AVAILABLE AND I CAN BRING PAIN MEDICATION AT 2100. PT BECAME INCREASINGLY UPSET THAT SHE TOOK THE MEDICATION AT 1400 AND NEEDED TO TAKE IT NOW. INFORMED HER THE MEDICATION IS SHOWING THAT IT WAS ADMINISTERED AT 1701. PT YELLED THAT I WAS A "DUMB BITCH" AND DID NOT WANT ME HER "FUCKING NURSE". CALLED DIAGNOSTIC IMAGING MANAGER TO INFORM HER OF THE PATIENT'S DECISION AND WAS ASKED TO SWITCH WITH AN ADJACENT NURSE.
[2020-03-20] MEDS: INSULIN GLARGINE 100 UNITS/ML 10 ML VIAL SQ SCH ×2 (21:00→21:45)
[2020-03-21] VITALS (7 sets, daily range): BP systolic 108–154; BP diastolic 45–89
[2020-03-21] MEDS: HYDROMORPHONE 1 MG/1 ML AMP IVP PRN ×6 (01:48→21:21)
[2020-03-21] MEDS: ALPRAZOLAM 0.5 MG TABLET PO PRN (01:51)
[2020-03-21] MEDS: LACTATED RINGERS 1000ML 1,000 ML IV SCH ×2 (03:36→20:12)
[2020-03-21] MEDS: INSULIN HUMULIN R 100 UNIT/ML 3ML SQ SCH ×5 (05:48→20:14)
[2020-03-21 06:12] LABS: CREATININE 0.8 mg/dL (0.5-1.5); POTASSIUM 3.5 mmol/L (3.5-5.1)
[2020-03-21] MEDS: POLYETHYLENE GLYCOL 3350 17 GM POWD.PACK PO SCH (09:00)
[2020-03-21] MEDS: PANTOPRAZOLE SODIUM 40 MG TABLET.DR PO SCH ×2 (09:34→20:12)
[2020-03-21] MEDS: SENNOSIDES 8.6 MG TABLET PO SCH (09:34)
[2020-03-21] MEDS: LORAZEPAM 2 MG/ML 1 ML VIAL IVP PRN (12:33)
[2020-03-21] MEDS: INSULIN GLARGINE 100 UNITS/ML 10 ML VIAL SQ SCH (20:15)
--- NOTE | 2020-03-21 20:15 | NUR ---
MEDS SHIFT ASSESSMENT DONE, PLEASE REFER TO CHART. DUE MEDS ADMINISTERED, TOLERATED WELL. KEPT RESTED AND COMFORTABLE IN BED. CALL LIGHT WITHIN REACH. WILL MONITOR PT. Addendum: 03/21/20 at 2217 by DARLYN CHRISTIE RN RN Amended: Links added.
--- NOTE | 2020-03-21 21:21 | NUR ---
PAIN PT CLAIMS OF ABDOMINAL PAINS. MEDICATED WITH DILAUDID IV. PT REQUESTING ATIVAN AT THIS TIME WELL, STATED SHE NEEDS IT TO SLEEP. EXPLAINED THAT MD HAD ORDERED IT EVERY 12 HOURS NEEDED FOR ANXIETY AND IS NOT DUE. PT VERBALIZES UNDERSTANDING. WILL RE-ASSESS PT.
[2020-03-22] MEDS: LORAZEPAM 2 MG/ML 1 ML VIAL IVP PRN (00:28)
[2020-03-22] MEDS: HYDROMORPHONE 1 MG/1 ML AMP IVP PRN ×4 (01:53→13:32)
--- NOTE | 2020-03-22 01:53 | NUR ---
PAIN PT CALLS FOR PAIN MEDICATION, CLAIMS OF ABDOMINAL PAINS. MEDICATED WITH DILAUDID IV. KEPT COMFORTABLE IN BED. WILL RE-ASSESS PT.
[2020-03-22] MEDS: LACTATED RINGERS 1000ML 1,000 ML IV SCH ×2 (03:38→12:42)
[2020-03-22 04:00] VITALS: BP 116/54
--- NOTE | 2020-03-22 05:00 | NUR ---
ROUNDS RETURNS PROCESSOR WAS IN TO DRAW BLOOD. PT STILL VERY SLEEPY. NO DISTRESS NOTED. KEPT COMFORTABLE IN BED. FOR MORE CARE.
[2020-03-22] MEDS: INSULIN HUMULIN R 100 UNIT/ML 3ML SQ SCH ×3 (05:53→16:30)
[2020-03-22 07:52] VITALS: BP 143/70
[2020-03-22] MEDS: POLYETHYLENE GLYCOL 3350 17 GM POWD.PACK PO SCH (08:25)
[2020-03-22] MEDS: SENNOSIDES 8.6 MG TABLET PO SCH (08:25)
[2020-03-22] MEDS: PANTOPRAZOLE SODIUM 40 MG TABLET.DR PO SCH (08:25)
[2020-03-22] MEDS: ACETAMINOPHEN 325 MG TAB PO PRN (08:29)
[2020-03-22 10:48] VITALS: BP 142/78
[2020-03-22] MEDS ORDERED: KETOROLAC TROMETHAMINE 15MG/ML IV PRN (11:15)
[2020-03-22 15:54] VITALS: BP 141/71
--- NOTE | 2020-03-22 18:00 | NUR ---
Patient requested pain medication. Notified that ketorolac was ordered for pain management, and administered. Patient stated that this medication did not work for her pancreatitis pain. Stated she wished to leave against medical advice and she would follow up tomorrow with her physician. Dr. Pires notified of AMA. No new orders received. Removed PIV to LFA, bleeding controlled and dressing applied.
--- NOTE | 2020-03-23 08:36 | NUR ---
JHONNY MCKEON RN NOTES Addendum: 03/23/20 at 0837 by PORTAI ORLANDO RN CM Amended: Links added.
== END 2020-03-22 18:30 | disposition left against medical advice (07) | DRG 282 ==
LOC: EDH 16:29 → EDHIP 16:30 → 3BH 23:04
PROVIDERS: ADMIT Internal Medicine; ATTEND Internal Medicine
DX: K85.90 Acute pancreatitis without necrosis or infection, unspecified (principal); E10.9 Type 1 diabetes mellitus without complications; I10 Essential (primary) hypertension; F41.1 Generalized anxiety disorder; F19.10 Other psychoactive substance abuse, uncomplicated; Z91.19 Patient's noncompliance with other medical treatment and regimen; Z79.4 Long term (current) use of insulin; Z91.14 Patient's other noncompliance with medication regimen; Z83.3 Family history of diabetes mellitus; Z82.5 Family history of asthma and other chronic lower respiratory diseases; Z82.49 Family history of ischemic heart disease and other diseases of the circulatory system; Z82.3 Family history of stroke; Z82.0 Family history of epilepsy and other diseases of the nervous system
CPT/HCPCS: 36415; 74176; 80048; 80053; 80061; 80076; 80305; 81001; 81025; 82150; 82948; 83036; 83630; 83690; 84145; 85025; 87046; C9113; G0378; J0360; J1170; J1815; J1885; J2060; J2270; J2405; J3490; J7030; J7120

== ENCOUNTER 2020-09-12 09:54 | Inpatient (IN) | payer MEDICAID ==
[~2020-09-12] VITALS: Ht 149.9 cm; Wt 58.4 kg
[2020-09-12] MEDS ORDERED: MORPHINE SULFATE 2 MG/ML 1ML SYG ONE ×2 (10:26→21:17)
[2020-09-12] MEDS ORDERED: MORPHINE SULFATE 4 MG/1ML SYG ONE (10:26)
[2020-09-12] MEDS ORDERED: SODIUM CHLORIDE 0.9% 50 ML IV ONE ×2 (10:27→12:01)
[2020-09-12] MEDS ORDERED: PANTOPRAZOLE 40 MG/VIAL ONE (10:33)
[2020-09-12 10:36] LABS: BASOPHILS % (AUTO) 0.3 % (0.0-5.0); HEMATOCRIT 35.4 % (36-48); MEAN CORPUSCULAR HEMOGLOBIN 31.3 pg (27.0-33.0); MEAN CORPUSCULAR HGB CONC 33.9 g/dL (32.0-36.0); MEAN CORPUSCULAR VOLUME 92.2 fL (79-99); MONOCYTES % (AUTO) 7.7 % (3.0-13.0); NEUTROPHILS % (AUTO) 77.5 % (40.0-77.0); PLATELET COUNT (AUTO) 350 K/uL (130-400); RED BLOOD CELL COUNT(AUTO) 3.84 MIL/uL (4.00-5.50); RED CELL DISTRIBUTION WIDTH 13.5 % (11.0-15.5); WHITE BLOOD COUNT (AUTO) 21.8 K/uL (4.8-10.8)
[2020-09-12 10:46] LABS: CREATININE 1.6 mg/dL (0.5-1.5); POTASSIUM 3.9 mmol/L (3.5-5.1)
[2020-09-12 10:49] LABS: INR 0.95 (0.85-1.15); PARTIAL THROMBOPLASTIN TIME 24.8 SEC (26.3-35.5); PROTHROMBIN TIME 10.3 SEC (9.6-11.6)
[2020-09-12 10:50] LABS: ALBUMIN 3.9 g/dL (3.5-5.0); BILIRUBIN,TOTAL 0.6 mg/dL (0.2-1.0); CRP QUANTITATIVE 24.2 mg/L (0.00-9.0); TOTAL PROTEIN, SERUM 7.9 g/dL (6.0-8.3)
[2020-09-12] MEDS ORDERED: LACTATED RINGERS 1000ML 2,000 ML IV ONE (10:59)
[2020-09-12] MEDS ORDERED: DIATR MEGLU/DIATRIZOATE SODIUM 30 ML BOTTLE ONE (11:05)
[2020-09-12] MEDS ORDERED: CEFEPIME HCL 2 GM VIAL ONE (12:01)
[2020-09-12] MEDS ORDERED: HYDROMORPHONE 1 MG/1 ML AMP ONE ×3 (13:51→16:45)
[2020-09-12] MEDS ORDERED: SODIUM CHLORIDE 0.9% 100 ML IV ONE (16:45)
[2020-09-12] MEDS ORDERED: ACETAMINOPHEN 325 MG TAB PO PRN ×2 (18:45)
[2020-09-12] MEDS ORDERED: LACTULOSE 20 GM/30 ML UDCUP PO PRN (18:45)
[2020-09-12] MEDS: SODIUM CHLORIDE 0.9% 1000ML 1,000 ML IV SCH (18:45)
[2020-09-12] MEDS ORDERED: ZOSYN 3.375GM+NS 50ML 50 ML IV ONE (19:52)
[2020-09-12] MEDS ORDERED: FAMOTIDINE/PF 20 MG/2 ML VIAL IV ONE (19:53)
[2020-09-12] MEDS ORDERED: SODIUM CHLORIDE 0.9% 1000ML 1,000 ML IV ONE (19:57)
[2020-09-12] MEDS ORDERED: ONDANSETRON HCL 4 MG/2 ML VIAL ONE (20:44)
[2020-09-12] MEDS: ZOSYN 3.375GM+NS 50ML 50 ML IV SCH (21:00)
--- NOTE | 2020-09-12 21:30 | NUR ---
ADMISSION PATIENT RECEIVED FROM ER FOR ACUTE ON CHRONIC PANCREATITIS AND ACUTE RENAL FAILURE UNDER THE CARE OF . PATIENT AWAKE AND ALERT. VOICES ALL NEEDS. PATIENT EXTREMELY AGITATED AND STATES SHE NEEDS TO GET TO HER CAR TO GET XANAX FOR HER ANXIETY, PATIENT ALSO UPSET THAT PAIN MEDICATION IS NOT DUE. NURSE REDIRECTED THE PATIENT THAT SHE WAS JUST MEDICATED IN ER WITH MORPHINE 2MG IVP. PATIENT THE STATES SHE NEEDS TO TAKE A HOT SHOWER AND RAN INTO BATHROOM AND SAT UNDER WATER. HEAD TO TOE ASSESSMENT DONE. A LARGE FLUID FILLED BLISTER NOTED TO UPPER BACK AREA. PATIENT STATES SHE TOOK A HOT SHOWER BEFORE COMING AND BURNED HER BACK. PATIENT IN SHOWER WAILING AT THIS TIME. NURSE IN ROOM AT THIS TIME. WILL CONTINUE TO MONITOR CLOSELY AFTER SHOWER. NO SIGNS OF DISTRESS NOTED. Addendum: 09/12/20 at 2156 by GIOVANI YAÑEZ RN RN Amended: Links added.
[2020-09-12] MEDS: ONDANSETRON HCL 4 MG/2 ML VIAL IV PRN (23:36)
[2020-09-12] MEDS: HYDROMORPHONE HCL 0.5 MG/0.5 ML ML IV PRN (23:37)
[2020-09-12] MEDS: INSULIN HUMULIN R 100 UNIT/ML 3ML SQ SCH (23:52)
[2020-09-13] VITALS (7 sets, daily range): BP systolic 98–186; BP diastolic 60–104
[2020-09-13] MEDS: SODIUM CHLORIDE 0.9% 1000ML 1,000 ML IV SCH ×3 (01:49→18:45)
--- NOTE | 2020-09-13 04:00 | NUR ---
PATIENT REFUSING LABS AT THIS TIME. Addendum: 09/13/20 at 0611 by GIOVANI YAÑEZ RN RN Amended: Links added.
--- NOTE | 2020-09-13 05:00 | NUR ---
PATIENT NOTED DRINKING WATER OUT OF THE FACET. REDIRECTED THAT SHE IS NPO. PATIENT COMPLAINTS OF PAIN, MEDICATED PER MARS FOR PAIN AND NAUSEA. PATIENT CONTINUES TO WAIL AND JUMP UP AND DOWN SHE STATES HELPS WITH HER ANXIETY. PATIENT ASSISTED TO SIT UP TO CHAIR FOR A BIT. FOLLOWS COMMANDS WELL. NO SIGNS OF DISTRESS NOTED. CALL LIGHT WITHIN REACH. WILL CONTINUE TO BE OBSERVED. Addendum: 09/13/20 at 0642 by GIOVANI YAÑEZ RN RN Amended: Links added.
[2020-09-13] MEDS: HYDROMORPHONE HCL 0.5 MG/0.5 ML ML IV PRN ×3 (05:03→18:26)
[2020-09-13] MEDS: ZOSYN 3.375GM+NS 50ML 50 ML IV SCH ×3 (05:03→20:14)
[2020-09-13] MEDS: ONDANSETRON HCL 4 MG/2 ML VIAL IV PRN (05:03)
[2020-09-13] MEDS: INSULIN HUMULIN R 100 UNIT/ML 3ML SQ SCH ×3 (06:00→18:00)
[2020-09-13 07:47] LABS: BASOPHILS % (AUTO) 0.3 % (0.0-5.0); LYMPHOCYTES % (AUTO) 11.7 % (21.0-51.0); MEAN CORPUSCULAR HEMOGLOBIN 31.1 pg (27.0-33.0); MEAN CORPUSCULAR VOLUME 94.3 fL (79-99); MONOCYTES % (AUTO) 4.4 % (3.0-13.0); NEUTROPHILS % (AUTO) 82.9 % (40.0-77.0); PLATELET COUNT (AUTO) 317 K/uL (130-400); RED CELL DISTRIBUTION WIDTH 13.6 % (11.0-15.5); WHITE BLOOD COUNT (AUTO) 21.6 K/uL (4.8-10.8)
[2020-09-13 08:17] LABS: CREATININE 1.2 mg/dL (0.5-1.5); POTASSIUM 3.6 mmol/L (3.5-5.1)
[2020-09-13] MEDS ORDERED: HYDROMORPHONE HCL 2 MG/ML VIAL ONE (08:51)
[2020-09-13] MEDS: FAMOTIDINE/PF 20 MG/2 ML VIAL IV SCH (08:59)
[2020-09-13] MEDS: ENOXAPARIN SODIUM 40 MG/0.4 ML SYRINGE SQ SCH (09:02)
[2020-09-13] MEDS ORDERED: HYDROMORPHONE HCL 2 MG/ML VIAL IVP SCH (09:15)
--- NOTE | 2020-09-13 09:15 | NUR ---
pt has been yelling and screaming wanting more pain meds, and juice; when i told her it was to soon to readminister pain meds she stated she wanted to leave AMA, i have called dr carter and katy mujica and informed them of this. dr carter came and saw pt and stated to give her a 1x dose of dilaudid 1.5mg and do a bladder scan; the 1.5 mg was given and bladder scan showed 0cc. pt did not want to leave AMA once she got the pain medications. she immediatly quit screaming and stayed sitting up in bed with eyes closed.
--- NOTE | 2020-09-13 09:24 | NUR ---
rounded with dr nguyen and pt is resting quietly, wakes to verbal stimuli, rating her pain at a 7 now; she shows no respiratory distress and follows commands asked of her.
[2020-09-13 09:54] LABS: CRP QUANTITATIVE 19.7 mg/L (0.00-9.0)
[2020-09-13 09:56] LABS: HEMOGLOBIN A1C 8.8 % (4.0-6.0)
--- NOTE | 2020-09-13 11:00 | NUR ---
SW NOTE Referral for polysubtance abuse. Labs are still pending; SW will follow up.
--- NOTE | 2020-09-13 11:28 | NUR ---
i have left a message on dr Carias's phone informing him pt in the hospital. i have left my cell number for him to call me back.
[2020-09-13] MEDS ORDERED: ALPRAZOLAM 1 MG TAB PO SCH (11:30)
[2020-09-13 11:37] LABS: APPEARANCE,URINE Clear (CLEAR); BILIRUBIN,URINE Negative (NEGATIVE); COLOR,URINE Yellow (YELLOW); GLUCOSE, URINE (UA) Negative (NEGATIVE); KETONES,URINE 40 mg/dL (NEGATIVE); LEUKOCYTE ESTERASE ,URINE Negative (NEGATIVE); NITRATE,URINE Negative (NEGATIVE); OCCULT BLOOD,URINE Large (NEGATIVE); PROTEIN,URINE POS 2+ mg/dL (NEGATIVE); UROBILINOGEN,URINE 0.2 mg/dL (0.2-1.0)
[2020-09-13 11:45] LABS: AMPHET/METH SCREEN,URINE NEGATIVE (NEGATIVE); BARBITURATE SCREEN, URINE NEGATIVE (NEGATIVE); BENZODIAZEPINES SCREEN,URINE NEGATIVE (NEGATIVE); CANNABINOID SCREEN,URINE POSITIVE (NEGATIVE); COCAINE SCREEN,URINE NEGATIVE (NEGATIVE); OPIATE SCREEN,URINE NEGATIVE (NEGATIVE); PHENCYCLIDINE SCREEN,URINE NEGATIVE (NEGATIVE)
[2020-09-13 11:55] LABS: HCG,QUAL RESULT NEGATIVE (NEGATIVE)
[2020-09-13 12:02] LABS: BACTERIA,URINE Rare /HPF (None Seen); RBC,URINE 0-1 /HPF (0-1); SQUAMOUS EPITHELIAL CELL,UR Rare /HPF (0-2); WBC,URINE 0-1 /HPF (0-1)
--- NOTE | 2020-09-13 12:39 | NUR ---
about an hour after receiving dilaudid earlier pt began to whale and cry and bounce constantly around in the bed, chair and bathroom; when i asked her if she suffers from drug withdrawal she stated yes from the xanax she takes. i gave her xanax and dilaudid now, will cont to monitor. pt quit crying out but continues to bounce around in the bedside chair.
--- NOTE | 2020-09-13 15:00 | NUR ---
[facility] CONSULT Patient assessed by [facility] team. See Inpatient Wound Assessment. Assessment and recommendations discussed with primary nurse. Orders entered. Education provided. Addendum: 09/16/20 at 0919 by DAVE FULTON LVN LVN W Amended: Links added.
--- NOTE | 2020-09-13 15:10 | NUR ---
[facility] CM met with pt in room this morning discussed dc plans. Pt is independent prior to admission, lives at home alone, mother and grandmother lives close by. Pt is restless, keeps scratching her body while talking to CM, does not make eye contact. Pt verbalized she has a shower chair. Denies any other services/equipments. Pt verbalized she feels safe at home and plans go back home once stable, doesn't drives, verbalized grandmother Radha able to assists her w/transportation and will come pick her up once ready to dc, she also has mother Mikki that is able to assist if needed. Dc plan to home once stable. CM to continue to follow up. Addendum: 09/13/20 at 1514 by STEVAN COLEMAN LVN CM Amended: Links added.
[2020-09-13] MEDS: QUETIAPINE FUMARATE 100 MG TAB PO SCH (20:10)
[2020-09-13] MEDS: ALPRAZOLAM 1 MG TAB PO SCH (20:10)
[2020-09-14] MEDS: SODIUM CHLORIDE 0.9% 1000ML 1,000 ML IV SCH ×3 (02:45→18:45)
[2020-09-14] MEDS: HYDROMORPHONE HCL 0.5 MG/0.5 ML ML IV PRN ×5 (02:51→23:45)
[2020-09-14] MEDS: ZOSYN 3.375GM+NS 50ML 50 ML IV SCH ×3 (04:38→19:49)
[2020-09-14 04:53] VITALS: BP 112/68
--- NOTE | 2020-09-14 05:11 | NUR ---
Patient transferred to room 322, via wheelchair, had been in room jumping up and down, walking around nervous. Patient stated it wasn't anxiety just pain. Encouraged her on warm compresses and distraction. Report given to third floor nurse on patient's status.
--- NOTE | 2020-09-14 05:20 | NUR ---
PATIENT CRYING VERY AGITATED. RN DISCHARGE AJ PAGED. NOTIFIED OF PATIENT'S BEHAVIOR AND THAT SHE WAS WANTING SOMETHING FOR PAIN. RN DISCHARGE STATED HE WAS NOT GOING TO GIVE AN ADDITIONAL DOSE OF DILAUDID NOR INCREASE THE CURRENT DOSE. A ONE TIME ORDER OF IV TORADOL WAS PLACED.
[2020-09-14 05:23] LABS: BASOPHILS % (AUTO) 0.5 % (0.0-5.0); EOSINOPHILS % (AUTO) 0.5 % (0.0-8.0); HEMATOCRIT 32.3 % (36-48); LYMPHOCYTES % (AUTO) 21.1 % (21.0-51.0); MEAN CORPUSCULAR HEMOGLOBIN 31.3 pg (27.0-33.0); MEAN CORPUSCULAR HGB CONC 33.4 g/dL (32.0-36.0); MEAN CORPUSCULAR VOLUME 93.6 fL (79-99); MONOCYTES % (AUTO) 7.4 % (3.0-13.0); NEUTROPHILS % (AUTO) 70.1 % (40.0-77.0); PLATELET COUNT (AUTO) 299 K/uL (130-400); RED BLOOD CELL COUNT(AUTO) 3.45 MIL/uL (4.00-5.50); RED CELL DISTRIBUTION WIDTH 13.4 % (11.0-15.5); WHITE BLOOD COUNT (AUTO) 17.1 K/uL (4.8-10.8)
[2020-09-14] MEDS ORDERED: KETOROLAC TROMETHAMINE 15MG/ML IV SCH (05:30)
[2020-09-14 05:59] LABS: ALBUMIN 3.1 g/dL (3.5-5.0); BILIRUBIN,TOTAL 0.5 mg/dL (0.2-1.0); CREATININE 1.2 mg/dL (0.5-1.5); CRP QUANTITATIVE 23.1 mg/L (0.00-9.0); PHOSPHORUS 2.6 mg/dL (2.5-4.9); POTASSIUM 3.3 mmol/L (3.5-5.1); THYROID STIMULATING HORMONE 0.66 uIU/mL (0.36-3.74); TOTAL PROTEIN, SERUM 6.3 g/dL (6.0-8.3)
[2020-09-14] MEDS: INSULIN HUMULIN R 100 UNIT/ML 3ML SQ SCH ×5 (06:00→20:03)
--- NOTE | 2020-09-14 06:00 | NUR ---
PAIN MANAGEMENT NEW ORDER FOR IV TORADOL WAS OFFERED TO PATIENT. PATIENT STATED SHE DIDN'T WANT TORADOL BECAUSE IT INCREASED HER ANXIETY. ETHANOL OPERATOR DEBRA WAS PAGED AND HE OK'D TO GO AHEAD AND GIVE PATIENT SCHEDULED XANAX EARLY PATIENT REMAINED VERY ANXIOUS. WILL CONTINUE TO MONITOR THE PATIENT
[2020-09-14] MEDS: ALPRAZOLAM 1 MG TAB PO SCH ×2 (06:10→19:50)
[2020-09-14 06:30] LABS: ERYTHROCYTE SEDIMENTATION RATE 15 MM/HR (0-20)
[2020-09-14] MEDS ORDERED: KETOROLAC TROMETHAMINE 30MG/ML IV SCH (07:00)
[2020-09-14 08:00] VITALS: BP 167/92
[2020-09-14] MEDS: ENOXAPARIN SODIUM 40 MG/0.4 ML SYRINGE SQ SCH (09:00)
[2020-09-14] MEDS: FAMOTIDINE/PF 20 MG/2 ML VIAL IV SCH (09:51)
[2020-09-14 13:20] VITALS: BP 131/67
[2020-09-14] MEDS: POTASSIUM CHLORIDE 20 MEQ ERTAB PO SCH (14:18)
--- NOTE | 2020-09-14 15:27 | NUR ---
attempted SS services for +uds(marijuana) unable to conduct intake at this time d/t patient unarousable. Attempted 1st intake @ 10:30am and second attempt @ 03:10pm. Per nursing staff patient given pain medication(Nereyda Nichols LMSW)
[2020-09-14 15:54] VITALS: BP 174/86
[2020-09-14] MEDS ORDERED: ALPRAZOLAM 1 MG TAB PO SCH (17:15)
[2020-09-14] MEDS ORDERED: POTASSIUM CHLORIDE 20 MEQ ERTAB PO SCH (17:45)
[2020-09-14] MEDS ORDERED: TRAZODONE HCL 50 MG TAB ONE (18:32)
[2020-09-14] MEDS: QUETIAPINE FUMARATE 100 MG TAB PO SCH (19:50)
[2020-09-14 20:00] VITALS: BP 144/82
[2020-09-14] MEDS ORDERED: TRAZODONE HCL 50 MG TAB PO SCH (21:00)
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
[2020-09-14 23:41] VITALS: BP 143/74
[2020-09-15] MEDS ORDERED: FLU VACC QS2020-21(6MOS UP)/PF 60 MCG/0.5 ML ML IM ONE (01:00)
[2020-09-15] MEDS: SODIUM CHLORIDE 0.9% 1000ML 1,000 ML IV SCH ×2 (02:45→13:38)
[2020-09-15 04:00] VITALS: BP 99/69
[2020-09-15] MEDS ORDERED: METOPROLOL TARTRATE 1 MG/ML 5ML VIAL IV ONE (04:36)
[2020-09-15] MEDS: HYDROMORPHONE HCL 0.5 MG/0.5 ML ML IV PRN ×4 (04:40→16:38)
[2020-09-15] MEDS: ZOSYN 3.375GM+NS 50ML 50 ML IV SCH ×2 (04:40→13:36)
[2020-09-15] MEDS: INSULIN HUMULIN R 100 UNIT/ML 3ML SQ SCH ×2 (06:00→12:00)
[2020-09-15 06:13] LABS: BASOPHILS % (AUTO) 0.9 % (0.0-5.0); EOSINOPHILS % (AUTO) 2.1 % (0.0-8.0); HEMATOCRIT 32.2 % (36-48); LYMPHOCYTES % (AUTO) 45.1 % (21.0-51.0); MEAN CORPUSCULAR HEMOGLOBIN 30.6 pg (27.0-33.0); MEAN CORPUSCULAR HGB CONC 33.5 g/dL (32.0-36.0); MEAN CORPUSCULAR VOLUME 91.2 fL (79-99); NEUTROPHILS % (AUTO) 42.6 % (40.0-77.0); PLATELET COUNT (AUTO) 260 K/uL (130-400); RED BLOOD CELL COUNT(AUTO) 3.53 MIL/uL (4.00-5.50); RED CELL DISTRIBUTION WIDTH 12.9 % (11.0-15.5); WHITE BLOOD COUNT (AUTO) 7.7 K/uL (4.8-10.8)
--- NOTE | 2020-09-15 06:24 | NUR ---
PAIN MANAGEMENT PAGED DR. JENNI VEE'S ANSWERING SERVICE IN REGARDS TO PATIENT STATING SHE HAD PAIN. PRN PAIN MED ADMINISTERED AT O440. PAIN MEDICATION NOT YET DUE. DR. ROLLINS WAS MADE AWARE. STATED, " ITS OK, LEAVE IT LIKE THAT.THIS PATIENT IS A PAIN SEEKER." NO NEW ORDERS RECEIVED AT THIS TIME.WILL CONTINUE TO MONITOR THE PATIENT
[2020-09-15 06:30] LABS: ALBUMIN 2.6 g/dL (3.5-5.0); BILIRUBIN,TOTAL 0.5 mg/dL (0.2-1.0); CRP QUANTITATIVE 14.4 mg/L (0.00-9.0); MAGNESIUM 1.9 mg/dL (1.80-2.40); PHOSPHORUS 2.6 mg/dL (2.5-4.9); TOTAL PROTEIN, SERUM 5.6 g/dL (6.0-8.3)
[2020-09-15 06:32] LABS: POTASSIUM 2.9 mmol/L (3.5-5.1)
[2020-09-15] MEDS ORDERED: POTASSIUM CHLORIDE 20 MEQ ERTAB PO SCH ×2 (07:00→11:00)
[2020-09-15 07:22] LABS: ERYTHROCYTE SEDIMENTATION RATE 5 MM/HR (0-20)
[2020-09-15 08:51] VITALS: BP 127/74
[2020-09-15] MEDS ORDERED: PAROXETINE HCL 20 MG TABLET PO SCH (09:00)
[2020-09-15] MEDS: FAMOTIDINE/PF 20 MG/2 ML VIAL IV SCH (09:03)
[2020-09-15] MEDS: ALPRAZOLAM 1 MG TAB PO SCH ×2 (09:03→15:06)
[2020-09-15] MEDS: LIPASE/PROTEASE/AMYLASE 5000/17000/24000 PO SCH ×3 (09:03→16:39)
[2020-09-15] MEDS: ENOXAPARIN SODIUM 40 MG/0.4 ML SYRINGE SQ SCH (09:04)
[2020-09-15 12:32] VITALS: BP 119/73
[2020-09-15] MEDS: POTASSIUM CHLORIDE 20 MEQ ERTAB PO SCH (13:45)
--- NOTE | 2020-09-15 14:20 | NUR ---
GINO NOTE-PT. Refusing to speak w/this worker. GINO attempted to meet with pt. again, pt. lying in bed crosswise, bouncing, stated nurse has medicated her for pain, however, ineffective. Pt. stated " I don't want to talk, go away"
[2020-09-15 17:28] VITALS: BP 204/99
[2020-09-15] MEDS ORDERED: Lipase/Protease/Amylase PO (17:37)
[2020-09-15] MEDS ORDERED: LISINOPRIL 10 MG TABLET PO SCH (18:45)
== END 2020-09-15 18:00 | disposition home or self-care (01) | DRG 282 ==
LOC: EDH 09:54 → EDHIP 09:55 → 4AH 20:33 → 3DH 09-14 05:03
PROVIDERS: ADMIT Family Medicine; ATTEND Family Medicine
DX: K85.90 Acute pancreatitis without necrosis or infection, unspecified (principal); N17.9 Acute kidney failure, unspecified; E11.65 Type 2 diabetes mellitus with hyperglycemia; R65.10 Systemic inflammatory response syndrome (SIRS) of non-infectious origin without acute organ dysfunction; F41.9 Anxiety disorder, unspecified; J98.11 Atelectasis; K86.1 Other chronic pancreatitis; E87.2 Acidosis; T21.21XA Burn of second degree of chest wall, initial encounter; S20.429A Blister (nonthermal) of unspecified back wall of thorax, initial encounter; E87.6 Hypokalemia; F12.188 Cannabis abuse with other cannabis-induced disorder; R11.15 Cyclical vomiting syndrome unrelated to migraine; E86.1 Hypovolemia; Z20.828 Contact with and (suspected) exposure to other viral communicable diseases; Y93.89 Activity, other specified; Y92.89 Other specified places as the place of occurrence of the external cause; Y99.8 Other external cause status; Z90.49 Acquired absence of other specified parts of digestive tract; Z79.4 Long term (current) use of insulin; Z82.3 Family history of stroke; Z83.3 Family history of diabetes mellitus; Z82.0 Family history of epilepsy and other diseases of the nervous system; Z82.5 Family history of asthma and other chronic lower respiratory diseases; Z82.49 Family history of ischemic heart disease and other diseases of the circulatory system; F19.10 Other psychoactive substance abuse, uncomplicated
CPT/HCPCS: 36415; 74176; 80048; 80053; 80305; 81001; 81025; 82150; 82948; 83036; 83605; 83690; 83735; 84100; 84145; 84443; 85025; 85610; 85651; 85730; 86140; 87040; 87426; C9113; G0378; J0692; J1170; J1650; J1815; J1885; J2270; J2405; J2543; J3490; J7030; J7120; Q9963; U0003

== ENCOUNTER 2021-05-23 06:31 | Emergency (ER) | payer MEDICAID ==
[~2021-05-23 06:31] MED LIST changes: +Lipase/Protease/Amylase PO
[2021-05-23 06:52] VITALS: BP 167/86
[2021-05-23] MEDS ORDERED: LACTATED RINGERS 1000ML 1,000 ML IV ONE (07:30)
[2021-05-23] MEDS ORDERED: HYDROMORPHONE 1 MG INJ IVP ONE (07:30)
[2021-05-23] MEDS ORDERED: ONDANSETRON 4MG INJ IVP ONE (07:30)
[2021-05-23 07:46] LABS: APPEARANCE,URINE Cloudy (CLEAR); BILIRUBIN,URINE Negative (NEGATIVE); COLOR,URINE Dark Yellow (YELLOW); GLUCOSE, URINE (UA) >=1000 mg/dL (NEGATIVE); KETONES,URINE 15 mg/dL (NEGATIVE); LEUKOCYTE ESTERASE ,URINE Trace (NEGATIVE); NITRATE,URINE Negative (NEGATIVE); OCCULT BLOOD,URINE Large (NEGATIVE); PROTEIN,URINE >=1000 mg/dL (NEGATIVE)
[2021-05-23 07:51] LABS: HCG,QUAL RESULT NEGATIVE (NEGATIVE)
[2021-05-23 07:54] LABS: WBC,URINE 0-1 /HPF (0-1)
[2021-05-23 07:55] LABS: BACTERIA,URINE Few /HPF (None Seen); SQUAMOUS EPITHELIAL CELL,UR Moderate /HPF (0-2)
[2021-05-23 08:51] VITALS: BP 113/64
[2021-05-23 10:04] LABS: ALBUMIN 3.3 g/dL (3.5-5.0); BILIRUBIN,TOTAL 0.3 mg/dL (0.2-1.0); CREATININE 1.7 mg/dL (0.5-1.5); POTASSIUM 3.8 mmol/L (3.5-5.1); TOTAL PROTEIN, SERUM 6.9 g/dL (6.0-8.3)
[2021-05-23 10:18] LABS: ABG BASE EXCESS -0.3 mmol/L (-2.0-3.0); ABG HCO3 24.5 mmol/L (21.0-28.0); ABG PCO2 41 mmHg (32-45)
[2021-05-23 10:39] LABS: BASOPHILS % (AUTO) 0.4 % (0.0-5.0); HEMATOCRIT 30.7 % (36-48); LYMPHOCYTES % (AUTO) 14.7 % (21.0-51.0); MEAN CORPUSCULAR HEMOGLOBIN 30.8 pg (27.0-33.0); MEAN CORPUSCULAR HGB CONC 33.6 g/dL (32.0-36.0); MEAN CORPUSCULAR VOLUME 91.9 fL (79-99); MONOCYTES % (AUTO) 5.2 % (3.0-13.0); NEUTROPHILS % (AUTO) 79.3 % (40.0-77.0); PLATELET COUNT (AUTO) 297 K/uL (130-400); RED BLOOD CELL COUNT(AUTO) 3.34 MIL/uL (4.00-5.50); RED CELL DISTRIBUTION WIDTH 13.2 % (11.0-15.5)
[2021-05-23 10:44] VITALS: BP 117/66
[2021-05-23 12:57] VITALS: BP 127/76
[2021-05-23] MEDS ORDERED: FAMO-136 PO (14:25)
[2021-05-23] MEDS ORDERED: ONDA8TAB12 PO (14:25)
[2021-05-23 14:33] VITALS: BP 120/73
== END 2021-05-23 14:45 | disposition home or self-care (01) ==
LOC: EDH 06:31
DX: K29.00 Acute gastritis without bleeding (principal); E11.65 Type 2 diabetes mellitus with hyperglycemia; E86.0 Dehydration; F10.10 Alcohol abuse, uncomplicated; F31.9 Bipolar disorder, unspecified; Z79.4 Long term (current) use of insulin; Z79.899 Other long term (current) drug therapy
CPT/HCPCS: 36415; 36600; 74176; 80053; 81001; 81025; 82010; 82150; 82803; 82948; 83690; 85025; 96361; 96374; 96375; 99285; J1170; J2405; J7120

== ENCOUNTER 2021-06-25 17:14 | Inpatient (IN) | payer MEDICAID ==
[~2021-06-25] VITALS: Ht 149.9 cm; Wt 62.6 kg
[~2021-06-25 17:14] MED LIST changes: +FAMO-136 PO; +ONDA8TAB12 PO
[2021-06-25 17:50] LABS: BASOPHILS % (AUTO) 0.5 % (0.0-5.0); EOSINOPHILS % (AUTO) 0.1 % (0.0-8.0); HEMATOCRIT 38.7 % (36-48); LYMPHOCYTES % (AUTO) 10.6 % (21.0-51.0); MEAN CORPUSCULAR HGB CONC 33.6 g/dL (32.0-36.0); MEAN CORPUSCULAR VOLUME 92.4 fL (79-99); MONOCYTES % (AUTO) 3.7 % (3.0-13.0); NEUTROPHILS % (AUTO) 84.8 % (40.0-77.0); PLATELET COUNT (AUTO) 346 K/uL (130-400); RED BLOOD CELL COUNT(AUTO) 4.19 MIL/uL (4.00-5.50); RED CELL DISTRIBUTION WIDTH 13.1 % (11.0-15.5); WHITE BLOOD COUNT (AUTO) 18.9 K/uL (4.8-10.8)
[2021-06-25 17:58] LABS: APPEARANCE,URINE Cloudy (CLEAR); BILIRUBIN,URINE Negative (NEGATIVE); COLOR,URINE Yellow (YELLOW); GLUCOSE, URINE (UA) >=1000 mg/dL (NEGATIVE); KETONES,URINE 15 mg/dL (NEGATIVE); LEUKOCYTE ESTERASE ,URINE Negative (NEGATIVE); NITRATE,URINE Negative (NEGATIVE); OCCULT BLOOD,URINE Large (NEGATIVE); PH,URINE 5.5 (5.0-8.0); PROTEIN,URINE >=1000 mg/dL (NEGATIVE)
[2021-06-25 18:06] LABS: AMPHET/METH SCREEN,URINE NEGATIVE (NEGATIVE); BARBITURATE SCREEN, URINE NEGATIVE (NEGATIVE); BENZODIAZEPINES SCREEN,URINE POSITIVE (NEGATIVE); CANNABINOID SCREEN,URINE POSITIVE (NEGATIVE); COCAINE SCREEN,URINE NEGATIVE (NEGATIVE); OPIATE SCREEN,URINE NEGATIVE (NEGATIVE); PHENCYCLIDINE SCREEN,URINE NEGATIVE (NEGATIVE)
[2021-06-25 18:10] LABS: BACTERIA,URINE Few /HPF (None Seen); SQUAMOUS EPITHELIAL CELL,UR Moderate /HPF (0-2); WBC,URINE 0-1 /HPF (0-1)
[2021-06-25 18:11] VITALS: BP 154/97
[2021-06-25 18:12] LABS: ALBUMIN 4.2 g/dL (3.5-5.0); BILIRUBIN,TOTAL 0.4 mg/dL (0.2-1.0); CREATININE 1.4 mg/dL (0.5-1.5); POTASSIUM 4.5 mmol/L (3.5-5.1); TOTAL PROTEIN, SERUM 8.4 g/dL (6.0-8.3)
[2021-06-25] MEDS ORDERED: MORPHINE 4 MG SYG IV ONE (18:30)
[2021-06-25] MEDS ORDERED: INSULIN HUMULIN R 100 UNIT/ML 3ML IV ONE (18:30)
[2021-06-25] MEDS ORDERED: METOCLOPRAMIDE 10 MG/2 ML VIAL IVP ONE (18:30)
[2021-06-25] MEDS ORDERED: LORAZEPAM 2 MG/ML 1 ML VIAL IVP ONE (18:30)
[2021-06-25] MEDS ORDERED: 0.9%NACL 1000ML 1,000 ML IV ONE (18:30)
[2021-06-25] MEDS ORDERED: FAMOTIDINE 20MG VIAL IV ONE (18:30)
[2021-06-25 19:04] LABS: ABG OXYGEN SATURATION 77.9 % (95.0-99.0); HCO3,VENOUS BLOOD GAS 28.4 (21.0-28.0); PCO2,VENOUS BLOOD GAS 47 (32-45); PH,VENOUS BLOOD GAS 7.403 (7.350-7.450)
[2021-06-25 20:30] VITALS: BP 144/90
[2021-06-25] MEDS ORDERED: DEXTROSE 5 % AND 0.9 % NACL 1,000 ML IV SCH (20:30)
[2021-06-25] MEDS ORDERED: ONDANSETRON 4MG INJ IVP PRN (20:30)
[2021-06-25] MEDS ORDERED: ACETAMINOPHEN 325 MG TAB PO PRN (20:30)
[2021-06-25] MEDS ORDERED: MORPHINE 2 MG SYG IVP PRN (20:30)
[2021-06-25] MEDS ORDERED: POTASSIUM CHLORIDE 10% ELIXIR 20 MEQ/15 ML UDCUP PO PRN (21:00)
[2021-06-25] MEDS ORDERED: KCL 20 MEQ ERTAB PO PRN (21:00)
[2021-06-25] MEDS ORDERED: GLUCAGON 1MG KIT 1 MG ML IM PRN (21:00)
[2021-06-25] MEDS ORDERED: POTASSIUM CHLORIDE 20MEQ/100ML 100 ML IV PRN (21:00)
[2021-06-25] MEDS ORDERED: LIDOCAINE HCL-MPF 1% 2ML VIAL IJ PRN (21:00)
[2021-06-25] MEDS ORDERED: DEXTROSE 50%-WATER 50 ML DISP.SYRIN IV PRN (21:00)
[2021-06-26] MEDS ORDERED: INSULIN R NPO SS2 SQ SCH
== END 2021-06-25 20:36 | disposition left against medical advice (07) | DRG 282 ==
LOC: EDH 17:14 → EDHIP 17:15 → UNDOADMIN 20:05 → EDHIP 20:36
PROVIDERS: ADMIT Internal Medicine Infectious Disease; ATTEND Internal Medicine Infectious Disease
DX: K85.90 Acute pancreatitis without necrosis or infection, unspecified (principal); E11.65 Type 2 diabetes mellitus with hyperglycemia; F19.10 Other psychoactive substance abuse, uncomplicated; Z88.8 Allergy status to other drugs, medicaments and biological substances
CPT/HCPCS: 36415; 36600; 80053; 80305; 81001; 82150; 82435; 82803; 82947; 83605; 83690; 84132; 84295; 84703; 85025; G0378; J1815; J2060; J2270; J2765; J3490

== ENCOUNTER 2021-06-25 23:29 | Emergency (ER) | payer MEDICAID ==
[~2021-06-25] VITALS: Ht 149.9 cm; Wt 58.1 kg
[2021-06-25 23:33] VITALS: BP 162/76
== END 2021-06-25 23:57 | disposition left against medical advice (07) ==
LOC: EDH 23:29
DX: R10.9 Unspecified abdominal pain (principal); Z53.21 Procedure and treatment not carried out due to patient leaving prior to being seen by health care provider

== ENCOUNTER 2021-06-26 09:48 | Inpatient (IN) | payer MEDICAID ==
[~2021-06-26] VITALS: Ht 149.9 cm; Wt 62.6 kg
[2021-06-26] MEDS ORDERED: ONDANSETRON 4MG INJ IVP SCH (11:00)
[2021-06-26] MEDS ORDERED: HYDROMORPHONE 1 MG INJ IVP SCH (11:00)
[2021-06-26] MEDS ORDERED: 0.9%NACL 1000ML 1,000 ML IV ONE (11:00)
[2021-06-26 11:13] LABS: BASOPHILS % (AUTO) 0.6 % (0.0-5.0); EOSINOPHILS % (AUTO) 0.5 % (0.0-8.0); HEMATOCRIT 34.6 % (36-48); LYMPHOCYTES % (AUTO) 20.7 % (21.0-51.0); MEAN CORPUSCULAR HEMOGLOBIN 30.5 pg (27.0-33.0); MEAN CORPUSCULAR HGB CONC 32.7 g/dL (32.0-36.0); MEAN CORPUSCULAR VOLUME 93.3 fL (79-99); MONOCYTES % (AUTO) 6.4 % (3.0-13.0); NEUTROPHILS % (AUTO) 71.5 % (40.0-77.0); PLATELET COUNT (AUTO) 303 K/uL (130-400); RED BLOOD CELL COUNT(AUTO) 3.71 MIL/uL (4.00-5.50); RED CELL DISTRIBUTION WIDTH 13.2 % (11.0-15.5); WHITE BLOOD COUNT (AUTO) 13.2 K/uL (4.8-10.8)
[2021-06-26 11:20] LABS: BILIRUBIN,URINE Negative (NEGATIVE); COLOR,URINE Dark Yellow (YELLOW); GLUCOSE, URINE (UA) TRACE mg/dL (NEGATIVE); KETONES,URINE 15 mg/dL (NEGATIVE); LEUKOCYTE ESTERASE ,URINE Negative (NEGATIVE); NITRATE,URINE Negative (NEGATIVE); OCCULT BLOOD,URINE Large (NEGATIVE); PROTEIN,URINE >=1000 mg/dL (NEGATIVE)
[2021-06-26 11:24] LABS: APPEARANCE,URINE SLIGHTLY CLOUDY (CLEAR)
[2021-06-26 11:25] LABS: HCG,QUAL RESULT NEGATIVE (NEGATIVE)
[2021-06-26] MEDS ORDERED: 0.9%NACL 1000ML 1,000 ML IV SCH (11:30)
[2021-06-26 11:46] LABS: BACTERIA,URINE Few /HPF (None Seen)
[2021-06-26 12:12] LABS: BILIRUBIN,TOTAL 0.4 mg/dL (0.2-1.0); CREATININE 1.1 mg/dL (0.5-1.5); POTASSIUM 4.2 mmol/L (3.5-5.1); TOTAL PROTEIN, SERUM 6.5 g/dL (6.0-8.3)
[2021-06-26 13:30] VITALS: BP 124/68
[2021-06-26] MEDS ORDERED: LORAZEPAM 2 MG/ML 1 ML VIAL IVP ONE (13:30)
[2021-06-26] MEDS ORDERED: MORPHINE 2 MG SYG IVP PRN (13:30)
[2021-06-26 13:42] LABS: HEMOGLOBIN A1C 8.4 % (4.0-6.0)
[2021-06-26] MEDS: LACTATED RINGERS 1000ML 1,000 ML IV SCH ×2 (13:51→23:14)
[2021-06-26 15:30] VITALS: BP 118/68
[2021-06-26 16:50] LABS: CHOLESTEROL 170 mg/dL (<200); HDL CHOLESTEROL 48 mg/dL (35-85); LDL DIRECT 103 mg/dL (0-99); TRIGLYCERIDES 129 mg/dL (30-200)
[2021-06-26 17:42] VITALS: BP 117/78
[2021-06-26] MEDS: INSULIN HUMULIN R 100 UNIT/ML 3ML SQ SCH ×2 (18:00→23:49)
[2021-06-26 18:54] VITALS: BP 134/89
[2021-06-26] MEDS ORDERED: MORPHINE 2 MG SYG IVP ONE (19:00)
[2021-06-26 21:07] LABS: AMPHET/METH SCREEN,URINE NEGATIVE (NEGATIVE); BARBITURATE SCREEN, URINE NEGATIVE (NEGATIVE); BENZODIAZEPINES SCREEN,URINE POSITIVE (NEGATIVE); CANNABINOID SCREEN,URINE POSITIVE (NEGATIVE); COCAINE SCREEN,URINE NEGATIVE (NEGATIVE); OPIATE SCREEN,URINE POSITIVE (NEGATIVE); PHENCYCLIDINE SCREEN,URINE NEGATIVE (NEGATIVE)
[2021-06-26] MEDS: HYDROMORPHONE 0.5 MG SYG (0.5MG/0.5ML) IVP PRN (22:28)
[2021-06-26 23:32] VITALS: BP 122/86
[2021-06-27 00:40] VITALS: BP 128/76
[2021-06-27] MEDS: LACTATED RINGERS 1000ML 1,000 ML IV SCH ×2 (02:22→09:30)
[2021-06-27] MEDS: HYDROMORPHONE 0.5 MG SYG (0.5MG/0.5ML) IVP PRN ×3 (02:26→09:58)
[2021-06-27 05:54] VITALS: BP 119/82
[2021-06-27] MEDS: INSULIN HUMULIN R 100 UNIT/ML 3ML SQ SCH (06:00)
[2021-06-27 08:39] LABS: BASOPHILS % (AUTO) 0.4 % (0.0-5.0); EOSINOPHILS % (AUTO) 2.2 % (0.0-8.0); HEMATOCRIT 31.2 % (36-48); LYMPHOCYTES % (AUTO) 15.4 % (21.0-51.0); MEAN CORPUSCULAR HEMOGLOBIN 30.2 pg (27.0-33.0); MEAN CORPUSCULAR HGB CONC 31.7 g/dL (32.0-36.0); MEAN CORPUSCULAR VOLUME 95.1 fL (79-99); MONOCYTES % (AUTO) 5.4 % (3.0-13.0); NEUTROPHILS % (AUTO) 76.1 % (40.0-77.0); PLATELET COUNT (AUTO) 164 K/uL (130-400); RED BLOOD CELL COUNT(AUTO) 3.28 MIL/uL (4.00-5.50); RED CELL DISTRIBUTION WIDTH 13.2 % (11.0-15.5); WHITE BLOOD COUNT (AUTO) 13.6 K/uL (4.8-10.8)
[2021-06-27 08:54] LABS: ALBUMIN 2.9 g/dL (3.5-5.0); BILIRUBIN,TOTAL 0.3 mg/dL (0.2-1.0); CREATININE 0.9 mg/dL (0.5-1.5); POTASSIUM 3.5 mmol/L (3.5-5.1)
[2021-06-27 10:30] VITALS: BP 151/82
[2021-06-27 13:01] LABS: MAGNESIUM 1.9 mg/dL (1.80-2.40)
== END 2021-06-27 13:30 | disposition left against medical advice (07) | DRG 282 ==
LOC: EDH 09:48 → EDHIP 09:49
PROVIDERS: ADMIT Internal Medicine; ATTEND Internal Medicine
DX: K85.90 Acute pancreatitis without necrosis or infection, unspecified (principal); E11.65 Type 2 diabetes mellitus with hyperglycemia; E88.09 Other disorders of plasma-protein metabolism, not elsewhere classified; F41.9 Anxiety disorder, unspecified; Z20.822 Contact with and (suspected) exposure to COVID-19; F12.10 Cannabis abuse, uncomplicated; Z96.41 Presence of insulin pump (external) (internal); Z98.891 History of uterine scar from previous surgery; Z79.4 Long term (current) use of insulin; Z88.8 Allergy status to other drugs, medicaments and biological substances; Z91.19 Patient's noncompliance with other medical treatment and regimen; Z83.3 Family history of diabetes mellitus; Z82.0 Family history of epilepsy and other diseases of the nervous system; Z82.5 Family history of asthma and other chronic lower respiratory diseases; Z82.49 Family history of ischemic heart disease and other diseases of the circulatory system; Z82.3 Family history of stroke; Z84.89 Family history of other specified conditions; K86.1 Other chronic pancreatitis
CPT/HCPCS: 36415; 74176; 80053; 80061; 80305; 81025; 82150; 82310; 82948; 83036; 83690; 83735; 85025; 87635; C9803; G0378; J1170; J2060; J2405

== ENCOUNTER 2021-06-28 09:39 | Emergency (ER) | payer MEDICAID ==
[~2021-06-28] VITALS: Ht 149.9 cm; Wt 62.6 kg
[2021-06-28 09:57] VITALS: BP 120/76
[2021-06-28 10:03] LABS: HCG,QUAL RESULT NEGATIVE (NEGATIVE)
[2021-06-28 10:05] LABS: BASOPHILS % (AUTO) 0.6 % (0.0-5.0); EOSINOPHILS % (AUTO) 0.5 % (0.0-8.0); HEMATOCRIT 33.5 % (36-48); LYMPHOCYTES % (AUTO) 20.3 % (21.0-51.0); MEAN CORPUSCULAR HEMOGLOBIN 30.2 pg (27.0-33.0); MEAN CORPUSCULAR HGB CONC 33.1 g/dL (32.0-36.0); MEAN CORPUSCULAR VOLUME 91.3 fL (79-99); MONOCYTES % (AUTO) 6.3 % (3.0-13.0); NEUTROPHILS % (AUTO) 72.1 % (40.0-77.0); PLATELET COUNT (AUTO) 291 K/uL (130-400); RED BLOOD CELL COUNT(AUTO) 3.67 MIL/uL (4.00-5.50); RED CELL DISTRIBUTION WIDTH 12.7 % (11.0-15.5); WHITE BLOOD COUNT (AUTO) 10.2 K/uL (4.8-10.8)
[2021-06-28 10:08] LABS: APPEARANCE,URINE Cloudy (CLEAR); BILIRUBIN,URINE Negative (NEGATIVE); COLOR,URINE Yellow (YELLOW); GLUCOSE, URINE (UA) 500 mg/dL (NEGATIVE); KETONES,URINE >=160 mg/dL (NEGATIVE); LEUKOCYTE ESTERASE ,URINE Negative (NEGATIVE); NITRATE,URINE Negative (NEGATIVE); OCCULT BLOOD,URINE Large (NEGATIVE); PH,URINE 5.5 (5.0-8.0); PROTEIN,URINE >=1000 mg/dL (NEGATIVE)
[2021-06-28 10:10] LABS: AMPHET/METH SCREEN,URINE NEGATIVE (NEGATIVE); BARBITURATE SCREEN, URINE NEGATIVE (NEGATIVE); BENZODIAZEPINES SCREEN,URINE POSITIVE (NEGATIVE); CANNABINOID SCREEN,URINE POSITIVE (NEGATIVE); COCAINE SCREEN,URINE NEGATIVE (NEGATIVE); OPIATE SCREEN,URINE NEGATIVE (NEGATIVE); PHENCYCLIDINE SCREEN,URINE NEGATIVE (NEGATIVE)
[2021-06-28 10:11] LABS: CREATININE 1.1 mg/dL (0.5-1.5); POTASSIUM 3.5 mmol/L (3.5-5.1)
[2021-06-28 10:14] LABS: BACTERIA,URINE Few /HPF (None Seen)
[2021-06-28 10:15] LABS: WBC,URINE 0-1 /HPF (0-1)
[2021-06-28 10:16] LABS: ALBUMIN 3.6 g/dL (3.5-5.0); BILIRUBIN,TOTAL 0.5 mg/dL (0.2-1.0); TOTAL PROTEIN, SERUM 7.3 g/dL (6.0-8.3)
[2021-06-28] MEDS ORDERED: HYDROXYZINE 100MG/2ML VIAL IM SCH (10:30)
[2021-06-28] MEDS ORDERED: HYDROXYZINE 50MG VIAL 50 MG/ML VIAL IM SCH (11:00)
== END 2021-06-28 11:28 | disposition home or self-care (01) ==
LOC: EDH 09:39
DX: F41.9 Anxiety disorder, unspecified (principal); Z88.6 Allergy status to analgesic agent; Z90.49 Acquired absence of other specified parts of digestive tract; Z79.899 Other long term (current) drug therapy
CPT/HCPCS: 36415; 80053; 80305; 81001; 81025; 82150; 83690; 85025; 96372; 99283; J3410

== ENCOUNTER 2021-06-29 20:34 | Emergency (ER) | payer MEDICAID ==
[~2021-06-29] VITALS: Ht 149.9 cm; Wt 58.1 kg
[2021-06-30] MEDS ORDERED: PROCHLORPERAZINE 10MG/2ML INJ IV ONE
[2021-06-30] MEDS ORDERED: PANTOPRAZOLE 40 MG/VIAL IVP SCH
[2021-06-30] MEDS ORDERED: MORPHINE 5 MG/ML VIAL (5MG OR GREATER DOSE) IV ONE
[2021-06-30] MEDS ORDERED: LACTATED RINGERS IV ONE
[2021-06-30 00:26] LABS: BASOPHILS % (AUTO) 0.8 % (0.0-5.0); EOSINOPHILS % (AUTO) 1.8 % (0.0-8.0); HEMATOCRIT 41.4 % (36-48); LYMPHOCYTES % (AUTO) 30.7 % (21.0-51.0); MEAN CORPUSCULAR HEMOGLOBIN 31.1 pg (27.0-33.0); MEAN CORPUSCULAR HGB CONC 34.3 g/dL (32.0-36.0); MEAN CORPUSCULAR VOLUME 90.6 fL (79-99); MONOCYTES % (AUTO) 8.4 % (3.0-13.0); NEUTROPHILS % (AUTO) 57.8 % (40.0-77.0); PLATELET COUNT (AUTO) 344 K/uL (130-400); RED BLOOD CELL COUNT(AUTO) 4.57 MIL/uL (4.00-5.50); RED CELL DISTRIBUTION WIDTH 12.8 % (11.0-15.5)
[2021-06-30 00:38] LABS: APPEARANCE,URINE Cloudy (CLEAR); BILIRUBIN,URINE Large (NEGATIVE); COLOR,URINE Dark Yellow (YELLOW); GLUCOSE, URINE (UA) TRACE mg/dL (NEGATIVE); KETONES,URINE 15 mg/dL (NEGATIVE); LEUKOCYTE ESTERASE ,URINE Trace (NEGATIVE); NITRATE,URINE Negative (NEGATIVE); OCCULT BLOOD,URINE Moderate (NEGATIVE); PROTEIN,URINE >=1000 mg/dL (NEGATIVE)
[2021-06-30 00:47] LABS: BACTERIA,URINE Moderate /HPF (None Seen); MUCUS,URINE Few LPF (None Seen)
[2021-06-30 01:02] LABS: AMPHET/METH SCREEN,URINE NEGATIVE (NEGATIVE); BARBITURATE SCREEN, URINE NEGATIVE (NEGATIVE); BENZODIAZEPINES SCREEN,URINE POSITIVE (NEGATIVE); CANNABINOID SCREEN,URINE POSITIVE (NEGATIVE); COCAINE SCREEN,URINE NEGATIVE (NEGATIVE); OPIATE SCREEN,URINE NEGATIVE (NEGATIVE); PHENCYCLIDINE SCREEN,URINE NEGATIVE (NEGATIVE)
[2021-06-30 01:23] LABS: CARBON DIOXIDE 24 mmol/L (21-32); CHLORIDE 95 mmol/L (101-111); CREATININE 2.2 mg/dL (0.5-1.5); GLOMERULAR FILTR. RATE CALC 28 mL/min (>60); GLUCOSE,RANDOM 249 mg/dL (70-105); POTASSIUM 3.3 mmol/L (3.5-5.1); SODIUM SERUM 141 mmol/L (136-145); UREA NITROGEN, BLOOD 24 mg/dL (7-18)
[2021-06-30 01:27] LABS: ALANINE AMINOTRANSFERASE 29 U/L (12-78); ALBUMIN 4.2 g/dL (3.5-5.0); ASPARTATE AMINOTRANSFERASE 17 U/L (10-37); BILIRUBIN,TOTAL 0.6 mg/dL (0.2-1.0); LIPASE 791 U/L (114-286); TOTAL PROTEIN, SERUM 8.6 g/dL (6.0-8.3)
[2021-06-30 01:49] LABS: CRP QUANTITATIVE < 2.00 mg/L (0.00-9.0)
[2021-06-30] MEDS ORDERED: DIATR MEGLU/DIATRIZOATE SODIUM 30 ML BOTTLE ONE (02:06)
[2021-06-30 04:54] VITALS: BP 130/65
== END 2021-06-30 04:54 | disposition home or self-care (01) ==
LOC: EDH 20:34
DX: K86.81 Exocrine pancreatic insufficiency (principal); E86.0 Dehydration; K90.3 Pancreatic steatorrhea; K86.1 Other chronic pancreatitis; R11.10 Vomiting, unspecified; E10.9 Type 1 diabetes mellitus without complications; F41.9 Anxiety disorder, unspecified; Z79.4 Long term (current) use of insulin; F31.9 Bipolar disorder, unspecified; Z79.899 Other long term (current) drug therapy; Z90.49 Acquired absence of other specified parts of digestive tract
CPT/HCPCS: 36415; 74176; 80053; 80305; 81001; 83690; 83735; 84478; 85025; 86140; 87088; 96361; 96374; 96375; 99284; J0780; J2270; J7120; Q9963; S0164; C9113

== ENCOUNTER 2021-10-02 07:53 | Emergency (ER) | payer MEDICAID ==
[~2021-10-02] VITALS: Ht 149.9 cm; Wt 58.6 kg
[2021-10-02] MEDS ORDERED: ONDANSETRON 4MG INJ IVP SCH (08:30)
[2021-10-02] MEDS ORDERED: HYDROMORPHONE 1 MG INJ IVP SCH (08:30)
[2021-10-02] MEDS ORDERED: 0.9%NACL 1000ML 1,000 ML IV SCH (08:30)
[2021-10-02] MEDS ORDERED: HYDROMORPHONE 1 MG INJ ONE (08:42)
[2021-10-02] MEDS ORDERED: ONDANSETRON 4MG INJ ONE (08:42)
[2021-10-02 08:45] LABS: BILIRUBIN,URINE SMALL (NEGATIVE); COLOR,URINE YELLOW (YELLOW); GLUCOSE, URINE (UA) NEGATIVE (NEGATIVE); KETONES,URINE >=80 mg/dL (NEGATIVE); LEUKOCYTE ESTERASE ,URINE NEGATIVE (NEGATIVE); NITRATE,URINE NEGATIVE (NEGATIVE); OCCULT BLOOD,URINE LARGE (NEGATIVE); PROTEIN,URINE >=300 mg/dL (NEGATIVE); UROBILINOGEN,URINE 0.2 mg/dL (0.2-1.0)
[2021-10-02 08:52] LABS: AMPHET/METH SCREEN,URINE NEGATIVE (NEGATIVE); BARBITURATE SCREEN, URINE NEGATIVE (NEGATIVE); BENZODIAZEPINES SCREEN,URINE POSITIVE (NEGATIVE); CANNABINOID SCREEN,URINE POSITIVE (NEGATIVE); COCAINE SCREEN,URINE NEGATIVE (NEGATIVE); OPIATE SCREEN,URINE POSITIVE (NEGATIVE); PHENCYCLIDINE SCREEN,URINE NEGATIVE (NEGATIVE)
[2021-10-02 08:53] LABS: APPEARANCE,URINE CLOUDY (CLEAR)
[2021-10-02 08:54] LABS: HCG,QUAL RESULT NEGATIVE (NEGATIVE)
[2021-10-02 09:32] LABS: BASOPHILS % (AUTO) 0.6 % (0.0-5.0); EOSINOPHILS % (AUTO) 0.3 % (0.0-8.0); HEMATOCRIT 36.4 % (36-48); LYMPHOCYTES % (AUTO) 19.4 % (21.0-51.0); MEAN CORPUSCULAR HEMOGLOBIN 31.4 pg (27.0-33.0); MEAN CORPUSCULAR HGB CONC 33.5 g/dL (32.0-36.0); MEAN CORPUSCULAR VOLUME 93.6 fL (79-99); MONOCYTES % (AUTO) 6.7 % (3.0-13.0); NEUTROPHILS % (AUTO) 72.7 % (40.0-77.0); PLATELET COUNT (AUTO) 347 K/uL (130-400); RED BLOOD CELL COUNT(AUTO) 3.89 MIL/uL (4.00-5.50); RED CELL DISTRIBUTION WIDTH 13.5 % (11.0-15.5); WHITE BLOOD COUNT (AUTO) 14.5 K/uL (4.8-10.8)
[2021-10-02 09:33] LABS: BILIRUBIN,TOTAL 0.4 mg/dL (0.2-1.0); CREATININE 1.3 mg/dL (0.5-1.5); POTASSIUM 3.4 mmol/L (3.5-5.1); TOTAL PROTEIN, SERUM 7.8 g/dL (6.0-8.3)
[2021-10-02] MEDS ORDERED: ACET1TAB25 PO (10:15)
[2021-10-02] MEDS ORDERED: AMYL1CAP61 PO (10:15)
[2021-10-02 10:19] VITALS: BP 118/78
[2021-10-02 10:19] LABS: BACTERIA,URINE Few /HPF (None Seen); SQUAMOUS EPITHELIAL CELL,UR 50-100 /HPF (0-2); WBC,URINE 0-1 /HPF (0-1)
== END 2021-10-02 10:41 | disposition home or self-care (01) ==
LOC: EDH 07:53
DX: K86.1 Other chronic pancreatitis (principal); K86.81 Exocrine pancreatic insufficiency; R11.10 Vomiting, unspecified; E11.9 Type 2 diabetes mellitus without complications; F31.9 Bipolar disorder, unspecified; F41.9 Anxiety disorder, unspecified; Z79.4 Long term (current) use of insulin; Z79.899 Other long term (current) drug therapy; Z90.49 Acquired absence of other specified parts of digestive tract
CPT/HCPCS: 36415; 80053; 80305; 81001; 81025; 83690; 85025; 96361; 96374; 96375; 99284; J1170; J2405; J7030

== ENCOUNTER 2021-10-03 08:52 | Emergency (ER) | payer MEDICAID ==
[~2021-10-03] VITALS: Ht 149.9 cm; Wt 56.2 kg
[~2021-10-03 08:52] MED LIST changes: +ACET1TAB25 PO; +AMYL1CAP61 PO
[2021-10-03 09:09] VITALS: BP 157/86
[2021-10-03] MEDS ORDERED: HYDROMORPHONE 1 MG INJ IM SCH (09:40)
== END 2021-10-03 10:28 | disposition home or self-care (01) ==
LOC: EDH 08:52
DX: G89.29 Other chronic pain (principal); R10.84 Generalized abdominal pain; E11.9 Type 2 diabetes mellitus without complications; F31.9 Bipolar disorder, unspecified; F41.9 Anxiety disorder, unspecified; Z79.4 Long term (current) use of insulin; Z79.899 Other long term (current) drug therapy; Z90.49 Acquired absence of other specified parts of digestive tract
CPT/HCPCS: 96372; 99283; J1170

== ENCOUNTER 2021-12-30 10:36 | Observation (INO) | payer MEDICAID ==
[~2021-12-30] VITALS: Ht 149.9 cm; Wt 59.0 kg
[~2021-12-30 10:36] MED LIST changes: +METO10TA41 PO
[2021-12-30 11:16] LABS: BASOPHILS % (AUTO) 0.5 % (0.0-5.0); HEMATOCRIT 34.7 % (36-48); LYMPHOCYTES % (AUTO) 10.1 % (21.0-51.0); MEAN CORPUSCULAR HGB CONC 32.6 g/dL (32.0-36.0); MEAN CORPUSCULAR VOLUME 95.1 fL (79-99); MONOCYTES % (AUTO) 2.6 % (3.0-13.0); NEUTROPHILS % (AUTO) 86.5 % (40.0-77.0); PLATELET COUNT (AUTO) 312 K/uL (130-400); RED BLOOD CELL COUNT(AUTO) 3.65 MIL/uL (4.00-5.50); RED CELL DISTRIBUTION WIDTH 13.9 % (11.0-15.5); WHITE BLOOD COUNT (AUTO) 15.5 K/uL (4.8-10.8)
[2021-12-30 11:25] LABS: AMPHET/METH SCREEN,URINE NEGATIVE (NEGATIVE); BARBITURATE SCREEN, URINE NEGATIVE (NEGATIVE); BENZODIAZEPINES SCREEN,URINE POSITIVE (NEGATIVE); CANNABINOID SCREEN,URINE POSITIVE (NEGATIVE); COCAINE SCREEN,URINE NEGATIVE (NEGATIVE); HCG,QUAL RESULT NEGATIVE (NEGATIVE); OPIATE SCREEN,URINE NEGATIVE (NEGATIVE); PHENCYCLIDINE SCREEN,URINE NEGATIVE (NEGATIVE)
[2021-12-30 11:34] LABS: CREATININE 1.3 mg/dL (0.5-1.5); POTASSIUM 4.1 mmol/L (3.5-5.1)
[2021-12-30 11:40] LABS: ALBUMIN 3.8 g/dL (3.5-5.0); BILIRUBIN,TOTAL 0.5 mg/dL (0.2-1.0); TOTAL PROTEIN, SERUM 7.8 g/dL (6.0-8.3)
[2021-12-30] MEDS ORDERED: IOHEXOL-350 75 ML VIAL IV ONE (12:17)
[2021-12-30] MEDS ORDERED: MORPHINE 4 MG SYG IV ONE ×2 (12:30→13:00)
[2021-12-30] MEDS ORDERED: INSULIN HUMULIN R 100 UNIT/ML 3ML SQ ONE (12:30)
[2021-12-30] MEDS ORDERED: ONDANSETRON 4MG INJ IVP ONE (12:30)
[2021-12-30] MEDS ORDERED: 0.9%NACL 1000ML 1,000 ML IV ONE ×2 (12:30→13:00)
[2021-12-30 13:28] LABS: ABG BASE EXCESS -4.9 mmol/L (-2.0-3.0); ABG HCO3 20.5 mmol/L (21.0-28.0); ABG OXYGEN SATURATION 96.7 % (95.0-99.0); ABG PCO2 39 mmHg (32-45)
[2021-12-30] MEDS ORDERED: HYDROMORPHONE 0.5 MG SYG (0.5MG/0.5ML) IVP ONE (14:00)
[2021-12-30] MEDS ORDERED: LORAZEPAM 2 MG/ML 1 ML VIAL ONE (16:09)
[2021-12-30] MEDS ORDERED: LORAZEPAM 2 MG/ML 1 ML VIAL IVP ONE (16:30)
[2021-12-30] MEDS ORDERED: 0.9%NACL 1000ML 1,000 ML IV SCH (18:00)
[2021-12-30] MEDS ORDERED: DEXTROSE 50%-WATER 50 ML DISP.SYRIN IV PRN (18:00)
[2021-12-30] MEDS ORDERED: MORPHINE 2 MG SYG IVP PRN (18:00)
[2021-12-30] MEDS ORDERED: ACETAMINOPHEN 325 MG TAB PO PRN ×2 (18:00)
[2021-12-30] MEDS ORDERED: ONDANSETRON 4MG INJ IVP PRN (18:00)
[2021-12-30] MEDS ORDERED: GLUCAGON 1MG KIT 1 MG ML IM PRN (18:00)
[2021-12-30] MEDS ORDERED: ONDANSETRON ODT 4MG TAB PO PRN (18:00)
[2021-12-30] MEDS: 0.9%NACL 1000ML 1,000 ML IV SCH (18:43)
[2021-12-30] MEDS: MORPHINE 2 MG SYG IVP PRN ×2 (18:44→23:58)
[2021-12-30] MEDS: INSULIN HUMULIN R 100 UNIT/ML 3ML SQ SCH (20:57)
[2021-12-30] MEDS ORDERED: GABA300C PO (23:19)
[2021-12-31] VITALS: BP 152/79
[2021-12-31] MEDS: QUETIAPINE FUMARATE 100 MG TAB PO SCH ×2 (00:41→20:22)
[2021-12-31] MEDS: ALPRAZOLAM 1 MG TAB PO SCH ×3 (00:42→20:23)
[2021-12-31 04:00] VITALS: BP 91/56
[2021-12-31] MEDS: 0.9%NACL 1000ML 1,000 ML IV SCH ×2 (04:00→16:50)
[2021-12-31 05:09] LABS: HEMATOCRIT 26.2 % (36-48); MEAN CORPUSCULAR HEMOGLOBIN 30.1 pg (27.0-33.0); MEAN CORPUSCULAR HGB CONC 32.1 g/dL (32.0-36.0); MEAN CORPUSCULAR VOLUME 93.9 fL (79-99); RED BLOOD CELL COUNT(AUTO) 2.79 MIL/uL (4.00-5.50); RED CELL DISTRIBUTION WIDTH 13.9 % (11.0-15.5); WHITE BLOOD COUNT (AUTO) 10.4 K/uL (4.8-10.8)
[2021-12-31 05:17] LABS: ALBUMIN 2.6 g/dL (3.5-5.0); BILIRUBIN,TOTAL 0.3 mg/dL (0.2-1.0); CREATININE 0.9 mg/dL (0.5-1.5); POTASSIUM 3.1 mmol/L (3.5-5.1); TOTAL PROTEIN, SERUM 5.6 g/dL (6.0-8.3)
[2021-12-31 05:33] LABS: HEMOGLOBIN A1C 8.1 % (4.0-6.0)
[2021-12-31] MEDS: INSULIN HUMULIN R 100 UNIT/ML 3ML SQ SCH ×4 (07:30→21:00)
[2021-12-31 08:10] VITALS: BP 99/62
[2021-12-31] MEDS ORDERED: ENOXAPARIN SODIUM 30 MG/0.3 ML SQ SCH (09:00)
[2021-12-31] MEDS ORDERED: POTASSIUM CHLORIDE 20MEQ/100ML 100 ML IV PRN (09:30)
[2021-12-31] MEDS ORDERED: PANTOPRAZOLE 40 MG/VIAL IVP ONE (09:30)
[2021-12-31] MEDS ORDERED: LIDOCAINE HCL-MPF 1% 2ML VIAL IV PRN (09:30)
[2021-12-31] MEDS ORDERED: POTASSIUM CHLORIDE 10% ELIXIR 20 MEQ/15 ML UDCUP PO PRN (09:30)
[2021-12-31] MEDS: ENOXAPARIN SODIUM 30 MG/0.3 ML SQ SCH (10:00)
[2021-12-31] MEDS: PANTOPRAZOLE 40 MG/VIAL IVP SCH (10:05)
[2021-12-31] MEDS: MORPHINE 2 MG SYG IVP PRN ×2 (10:05→16:50)
[2021-12-31] MEDS: KCL 20 MEQ ERTAB PO PRN ×3 (10:06→20:23)
[2021-12-31 11:58] VITALS: BP 107/54
[2021-12-31 16:00] VITALS: BP 107/60
[2021-12-31 19:00] VITALS: BP 122/75
[2022-01-01] VITALS: BP 125/76
[2022-01-01 04:00] VITALS: BP 134/72
[2022-01-01 04:40] LABS: HEMATOCRIT 27.2 % (36-48); MEAN CORPUSCULAR HEMOGLOBIN 30.7 pg (27.0-33.0); MEAN CORPUSCULAR HGB CONC 32.7 g/dL (32.0-36.0); MEAN CORPUSCULAR VOLUME 93.8 fL (79-99); RED BLOOD CELL COUNT(AUTO) 2.9 MIL/uL (4.00-5.50); RED CELL DISTRIBUTION WIDTH 14.3 % (11.0-15.5); WHITE BLOOD COUNT (AUTO) 8.7 K/uL (4.8-10.8)
[2022-01-01] MEDS: MORPHINE 2 MG SYG IVP PRN (04:43)
[2022-01-01 05:12] LABS: ALBUMIN 2.4 g/dL (3.5-5.0); BILIRUBIN,TOTAL 0.2 mg/dL (0.2-1.0); CREATININE 0.9 mg/dL (0.5-1.5); POTASSIUM 3.6 mmol/L (3.5-5.1); TOTAL PROTEIN, SERUM 5.3 g/dL (6.0-8.3)
[2022-01-01] MEDS: INSULIN HUMULIN R 100 UNIT/ML 3ML SQ SCH ×2 (07:30→11:27)
[2022-01-01 08:00] VITALS: BP 135/80
[2022-01-01] MEDS: PANTOPRAZOLE 40 MG/VIAL IVP SCH (08:29)
[2022-01-01] MEDS: ALPRAZOLAM 1 MG TAB PO SCH (08:30)
[2022-01-01] MEDS: ENOXAPARIN SODIUM 30 MG/0.3 ML SQ SCH (08:30)
[2022-01-01] MEDS ORDERED: KETOROLAC 30MG VIAL (30MG/ML) IV SCH (09:00)
[2022-01-01] MEDS ORDERED: MORPHINE 2 MG SYG IVP PRN (09:30)
[2022-01-01] MEDS: 0.9%NACL 1000ML 1,000 ML IV SCH ×2 (10:00)
[2022-01-01 11:00] VITALS: BP 108/70
== END 2022-01-01 13:00 | disposition left against medical advice (07) ==
LOC: EDH 10:36 → EDHIP 10:37 → 3BH 23:11
PROVIDERS: ADMIT Internal Medicine Infectious Disease; ATTEND Internal Medicine Infectious Disease
DX: E11.65 Type 2 diabetes mellitus with hyperglycemia (principal); E86.0 Dehydration; R10.13 Epigastric pain; F31.9 Bipolar disorder, unspecified; D72.829 Elevated white blood cell count, unspecified; E87.1 Hypo-osmolality and hyponatremia; K85.90 Acute pancreatitis without necrosis or infection, unspecified; E83.52 Hypercalcemia; F12.90 Cannabis use, unspecified, uncomplicated; R11.2 Nausea with vomiting, unspecified; Z79.4 Long term (current) use of insulin; Z79.899 Other long term (current) drug therapy; Z98.890 Other specified postprocedural states
CPT/HCPCS: 36415; 36600; 74177; 80053; 80305; 81025; 82150; 82803; 82948; 83036; 83690; 83735; 85025; 85027; 96361; 96372; 96374; 96375; 96376; C9113; G0378; J1170; J1650; J1885; J2060; J2270; J2405; J7030; Q9967

== ENCOUNTER 2023-01-27 09:37 | Emergency (ER) | payer MEDICAID ==
[~2023-01-27] VITALS: Ht 149.9 cm; Wt 57.6 kg
[~2023-01-27 09:37] MED LIST changes: -ACET1TAB25 PO; -ALPR1TAB2 PO; +CLON0.2T PO; +DICY10CA13 PO; -FAMO-136 PO; +GABA300C PO; -INSU100I15 SQ; +LORA2ORA5 PO; -Lipase/Protease/Amylase PO; +PANT40TA PO; +PROM25TA7 PO; -QUET100T PO; +TRAM50TA4 PO
[2023-01-27] MEDS ORDERED: ONDANSETRON 4MG INJ IVP ONE (10:30)
[2023-01-27] MEDS ORDERED: LACTATED RINGERS 1000ML 1,000 ML IV ONE (10:30)
[2023-01-27] MEDS ORDERED: MORPHINE 4 MG SYG IVP ONE (10:30)
[2023-01-27 10:56] LABS: BASOPHILS % (AUTO) 0.4 % (0.0-5.0); EOSINOPHILS % (AUTO) 0.1 % (0.0-8.0); HEMATOCRIT 38.4 % (36-48); LYMPHOCYTES % (AUTO) 14.9 % (21.0-51.0); MEAN CORPUSCULAR HEMOGLOBIN 29.7 pg (27.0-33.0); MEAN CORPUSCULAR HGB CONC 33.6 g/dL (32.0-36.0); MEAN CORPUSCULAR VOLUME 88.3 fL (79-99); MONOCYTES % (AUTO) 8.2 % (3.0-13.0); PLATELET COUNT (AUTO) 414 K/uL (130-400); RED BLOOD CELL COUNT(AUTO) 4.35 MIL/uL (4.00-5.50); RED CELL DISTRIBUTION WIDTH 13.8 % (11.0-15.5); WHITE BLOOD COUNT (AUTO) 16.7 K/uL (4.8-10.8)
[2023-01-27 11:12] LABS: CREATININE 1.8 mg/dL (0.5-1.5); POTASSIUM 3.3 mmol/L (3.5-5.1)
[2023-01-27 11:14] LABS: ALBUMIN 3.9 g/dL (3.5-5.0); TOTAL PROTEIN, SERUM 7.9 g/dL (6.0-8.3)
[2023-01-27 14:17] LABS: APPEARANCE,URINE CLOUDY (CLEAR); BILIRUBIN,URINE 0.5 mg/dL (NEGATIVE); COLOR,URINE YELLOW (YELLOW); GLUCOSE, URINE (UA) 500 mg/dL (NEGATIVE); KETONES,URINE 40 mg/dL (NEGATIVE); LEUKOCYTE ESTERASE ,URINE NEGATIVE Leu/uL (NEGATIVE); NITRATE,URINE NEGATIVE (NEGATIVE); OCCULT BLOOD,URINE LARGE (NEGATIVE); PROTEIN,URINE 600 mg/dL (NEGATIVE); UROBILINOGEN,URINE 0.2 mg/dL (0.2-1.0)
[2023-01-27 14:20] LABS: HCG,QUALITATIVE URINE NEGATIVE (NEGATIVE)
[2023-01-27 14:31] LABS: MUCUS,URINE RARE LPF (None Seen); SQUAMOUS EPITHELIAL CELL,UR MANY /HPF (0-2)
[2023-01-27] MEDS ORDERED: IOHEXOL-350 75 ML VIAL IV ONE (14:42)
[2023-01-27] MEDS ORDERED: ONDA4TAB10 PO (18:39)
[2023-01-27] MEDS ORDERED: SULF1TAB42 PO (18:39)
[2023-01-27 18:57] VITALS: BP 124/62
== END 2023-01-27 19:00 | disposition home or self-care (01) ==
LOC: EDH 09:37
DX: R10.9 Unspecified abdominal pain (principal); R11.10 Vomiting, unspecified; N39.0 Urinary tract infection, site not specified; F41.9 Anxiety disorder, unspecified; E11.9 Type 2 diabetes mellitus without complications; Z79.899 Other long term (current) drug therapy; Z90.49 Acquired absence of other specified parts of digestive tract
CPT/HCPCS: 99285; 74177; 96374; 96361; 96375; 82150; 80053; 83690; 85025; 87088; 81001; 81025; 36415; J7120; J2405; J2270; Q9967

== ENCOUNTER 2023-09-25 08:38 | Inpatient (IN) | payer MEDICAID ==
[~2023-09-25] VITALS: Ht 149.9 cm; Wt 64.4 kg
[~2023-09-25 08:38] MED LIST changes: +DICY-20 PO; -DICY10CA13 PO; +ONDA4TAB10 PO; +SULF1TAB42 PO
[2023-09-25 09:31] LABS: BASOPHILS # (AUTO) 0.05 K/uL (0.00-0.20); BASOPHILS % (AUTO) 0.5 % (0.0-5.0); EOSINOPHILS # (AUTO) 0.19 K/uL (0.00-0.70); EOSINOPHILS % (AUTO) 1.9 % (0.0-8.0); HEMATOCRIT 35.6 % (36-48); IMMATURE GRANULOCYTE ABSOLUTE 0.04 K/uL (0-1); LYMPHOCYTES # (AUTO) 1.9 K/uL (1.0-4.8); LYMPHOCYTES % (AUTO) 18.9 % (21.0-51.0); MEAN CORPUSCULAR HEMOGLOBIN 30.2 pg (27.0-33.0); MEAN CORPUSCULAR HGB CONC 33.1 g/dL (32.0-36.0); MONOCYTES # (AUTO) 1.2 K/uL (0.1-1.0); MONOCYTES % (AUTO) 11.9 % (3.0-13.0); NEUTROPHILS # (AUTO) 6.8 K/uL (1.8-7.7); NEUTROPHILS % (AUTO) 66.4 % (40.0-77.0); PLATELET COUNT (AUTO) 286 K/uL (130-400); RED BLOOD CELL COUNT(AUTO) 3.91 MIL/uL (4.00-5.50); RED CELL DISTRIBUTION WIDTH 14.6 % (11.0-15.5); WHITE BLOOD COUNT (AUTO) 10.2 K/uL (4.8-10.8)
[2023-09-25 09:39] LABS: CREATININE 1.2 mg/dL (0.5-1.5); POTASSIUM 3.9 mmol/L (3.5-5.1)
[2023-09-25 09:43] LABS: ALBUMIN 3.1 g/dL (3.5-5.0); BILIRUBIN,TOTAL 0.2 mg/dL (0.2-1.0); TOTAL PROTEIN, SERUM 7.3 g/dL (6.0-8.3)
[2023-09-25 09:59] LABS: APPEARANCE,URINE CLEAR (CLEAR); BILIRUBIN,URINE SMALL mg/dL (NEGATIVE); COLOR,URINE YELLOW (YELLOW); GLUCOSE, URINE (UA) NEGATIVE (NEGATIVE); KETONES,URINE 15 mg/dL (NEGATIVE); LEUKOCYTE ESTERASE ,URINE NEGATIVE Leu/uL (NEGATIVE); NITRATE,URINE NEGATIVE (NEGATIVE); OCCULT BLOOD,URINE MODERATE (NEGATIVE); PH,URINE 5.5 (5.0-8.0); PROTEIN,URINE >=300 mg/dL (NEGATIVE); UROBILINOGEN,URINE 0.2 mg/dL (0.2-1.0)
[2023-09-25 10:02] LABS: ADD UA MICROSCOPIC YES
[2023-09-25 10:06] LABS: AMPHET/METH SCREEN,URINE NEGATIVE (NEGATIVE); BARBITURATE SCREEN, URINE NEGATIVE (NEGATIVE); BENZODIAZEPINES SCREEN,URINE POSITIVE (NEGATIVE); CANNABINOID SCREEN,URINE POSITIVE (NEGATIVE); COCAINE SCREEN,URINE NEGATIVE (NEGATIVE); OPIATE SCREEN,URINE NEGATIVE (NEGATIVE); PHENCYCLIDINE SCREEN,URINE NEGATIVE (NEGATIVE)
[2023-09-25] MEDS: ACETAMINOPHEN 1,000 MG/100 ML VIAL IV SCH ×3 (10:11→11:11)
[2023-09-25 10:43] LABS: BACTERIA,URINE Rare /HPF (None Seen); RBC,URINE 0-1 /HPF (0-1); SQUAMOUS EPITHELIAL CELL,UR Few /HPF (0-2); WBC,URINE 0-1 /HPF (0-1)
[2023-09-25] MEDS ORDERED: LACTATED RINGERS 1000ML IV SCH (12:00)
[2023-09-25] MEDS: KETOROLAC 30MG VIAL (30MG/ML) IVP ONE ×2 (12:07→12:18)
[2023-09-25] MEDS: 0.9%NACL 1000ML 1,000 ML IV SCH ×2 (12:24→22:03)
[2023-09-25] MEDS: ONDANSETRON 4MG INJ IVP PRN ×2 (12:24→20:36)
[2023-09-25] MEDS: MORPHINE 2 MG SYG IVP PRN ×2 (12:24→18:06)
[2023-09-25] MEDS ORDERED: ACETAMINOPHEN 325 MG TAB PO PRN (12:30)
[2023-09-25] MEDS ORDERED: MORPHINE 2 MG SYG IVP ONE (14:00)
[2023-09-25] MEDS: CEFTRIAXONE 1G VIAL IVPB SCH (14:43)
[2023-09-25 15:20] LABS: CHOLESTEROL 144 mg/dL (<200); HDL CHOLESTEROL 43 mg/dL (35-85); LDL DIRECT 80 mg/dL (0-99); TRIGLYCERIDES 142 mg/dL (30-200)
[2023-09-25] MEDS ORDERED: DEXTROSE 50%-WATER 50 ML DISP.SYRIN IV PRN (17:00)
[2023-09-25] MEDS ORDERED: GLUCAGON 1MG KIT 1 MG ML IM PRN (17:00)
[2023-09-25 18:30] LABS: HEMOGLOBIN A1C 8.4 % (4.0-6.0)
[2023-09-25] MEDS: INSULIN HUMULIN R 100 UNIT/ML 3ML SQ SCH (20:37)
[2023-09-25] MEDS ORDERED: QUET25TA PO (22:01)
[2023-09-25] MEDS ORDERED: ALPR1TAB7 PO (22:01)
[2023-09-25 22:50] VITALS: BP 153/96; PULSE 69; RESP 18
[2023-09-26] VITALS (8 sets, daily range): BP systolic 119–180; BP diastolic 65–97; PULSE 85–110; RESP 16–22; O2SAT 95–96
[2023-09-26] MEDS: MORPHINE 2 MG SYG IVP PRN (00:07)
[2023-09-26] MEDS: HYDROMORPHONE 0.5 MG SYG (0.5MG/0.5ML) IVP PRN ×5 (01:22→17:42)
[2023-09-26] MEDS: ONDANSETRON 4MG INJ IVP PRN ×3 (02:57→15:17)
[2023-09-26] MEDS: INSULIN HUMULIN R 100 UNIT/ML 3ML SQ SCH ×4 (07:25→23:32)
[2023-09-26] MEDS: 0.9%NACL 1000ML 1,000 ML IV SCH ×2 (08:08→19:39)
[2023-09-26] MEDS: LORAZEPAM 2 MG/ML 1 ML VIAL IVP PRN (12:19)
[2023-09-26 12:39] LABS: BASOPHILS # (AUTO) 0.04 K/uL (0.00-0.20); BASOPHILS % (AUTO) 0.5 % (0.0-5.0); EOSINOPHILS # (AUTO) 0.09 K/uL (0.00-0.70); HEMATOCRIT 32.8 % (36-48); IMMATURE GRANULOCYTE ABSOLUTE 0.04 K/uL (0-1); LYMPHOCYTES # (AUTO) 1.1 K/uL (1.0-4.8); LYMPHOCYTES % (AUTO) 13.2 % (21.0-51.0); MEAN CORPUSCULAR HEMOGLOBIN 30.3 pg (27.0-33.0); MEAN CORPUSCULAR HGB CONC 32.6 g/dL (32.0-36.0); MEAN CORPUSCULAR VOLUME 92.9 fL (79-99); MONOCYTES # (AUTO) 0.6 K/uL (0.1-1.0); MONOCYTES % (AUTO) 7.3 % (3.0-13.0); NEUTROPHILS # (AUTO) 6.7 K/uL (1.8-7.7); NEUTROPHILS % (AUTO) 77.5 % (40.0-77.0); PLATELET COUNT (AUTO) 251 K/uL (130-400); RED BLOOD CELL COUNT(AUTO) 3.53 MIL/uL (4.00-5.50); RED CELL DISTRIBUTION WIDTH 14.6 % (11.0-15.5); WHITE BLOOD COUNT (AUTO) 8.6 K/uL (4.8-10.8)
[2023-09-26 12:50] LABS: CREATININE 1.2 mg/dL (0.5-1.5)
[2023-09-26 12:53] LABS: ALBUMIN 3.2 g/dL (3.5-5.0); BILIRUBIN,TOTAL 0.3 mg/dL (0.2-1.0); TOTAL PROTEIN, SERUM 7.3 g/dL (6.0-8.3)
[2023-09-26] MEDS: CEFTRIAXONE 1G VIAL IVPB SCH (13:42)
[2023-09-26] MEDS: METOCLOPRAMIDE 10 MG/2 ML VIAL IVP SCH (17:42)
[2023-09-26] MEDS: QUETIAPINE FUMARATE 25 MG TAB PO SCH (19:39)
[2023-09-26] MEDS: ALPRAZOLAM 1 MG TAB PO SCH (19:39)
[2023-09-27] VITALS (7 sets, daily range): BP systolic 113–168; BP diastolic 63–99; PULSE 72–107; RESP 16–20; O2SAT 97–99
[2023-09-27] MEDS: HYDROMORPHONE 0.5 MG SYG (0.5MG/0.5ML) IVP PRN ×2 (01:01→05:57)
[2023-09-27] MEDS: ONDANSETRON 4MG INJ IVP PRN (01:02)
[2023-09-27] MEDS: 0.9%NACL 1000ML 1,000 ML IV SCH ×3 (04:06→13:44)
[2023-09-27] MEDS: LORAZEPAM 2 MG/ML 1 ML VIAL IVP PRN (04:45)
[2023-09-27] MEDS: METOCLOPRAMIDE 10 MG/2 ML VIAL IVP SCH ×3 (05:56→17:00)
[2023-09-27] MEDS: INSULIN HUMULIN R 100 UNIT/ML 3ML SQ SCH ×3 (05:59→16:57)
[2023-09-27] MEDS: ALPRAZOLAM 1 MG TAB PO SCH ×2 (08:43→20:07)
[2023-09-27] MEDS ORDERED: HYDROMORPHONE 0.5 MG SYG (0.5MG/0.5ML) IVP PRN (09:00)
[2023-09-27] MEDS: CEFTRIAXONE 1G VIAL IVPB SCH (13:42)
[2023-09-27] MEDS ORDERED: ACETAMINOPHEN WITH CODEINE 1 TAB TAB PO PRN (17:30)
[2023-09-27] MEDS: QUETIAPINE FUMARATE 25 MG TAB PO SCH (20:07)
[2023-09-27] MEDS: HYDROMORPHONE 1 MG INJ IVP PRN (20:08)
[2023-09-28] VITALS: BP 131/72; PULSE 67; RESP 20
[2023-09-28] MEDS: 0.9%NACL 1000ML 1,000 ML IV SCH ×2 (00:30→13:54)
[2023-09-28 04:00] VITALS: BP 136/77; PULSE 70; RESP 18
[2023-09-28] MEDS: INSULIN HUMULIN R 100 UNIT/ML 3ML SQ SCH ×3 (05:32→12:00)
[2023-09-28] MEDS: HYDROMORPHONE 1 MG INJ IVP PRN (05:36)
[2023-09-28] MEDS: METOCLOPRAMIDE 10 MG/2 ML VIAL IVP SCH ×3 (06:30→17:00)
[2023-09-28] MEDS ORDERED: HYDROMORPHONE 1 MG INJ IVP PRN (07:30)
[2023-09-28 07:49] LABS: HEMATOCRIT 29.5 % (36-48); MEAN CORPUSCULAR HEMOGLOBIN 30.4 pg (27.0-33.0); MEAN CORPUSCULAR HGB CONC 33.6 g/dL (32.0-36.0); MEAN CORPUSCULAR VOLUME 90.5 fL (79-99); RED BLOOD CELL COUNT(AUTO) 3.26 MIL/uL (4.00-5.50); RED CELL DISTRIBUTION WIDTH 14.6 % (11.0-15.5); WHITE BLOOD COUNT (AUTO) 7.7 K/uL (4.8-10.8)
[2023-09-28 08:00] VITALS: O2SAT 96
[2023-09-28 08:04] LABS: ALBUMIN 2.4 g/dL (3.5-5.0); CREATININE 0.9 mg/dL (0.5-1.5)
[2023-09-28 08:08] LABS: BILIRUBIN,DIRECT 0.1 mg/dL (0.0-0.3); BILIRUBIN,TOTAL 0.3 mg/dL (0.2-1.0); TOTAL PROTEIN, SERUM 5.7 g/dL (6.0-8.3)
[2023-09-28 08:09] LABS: POTASSIUM 2.8 mmol/L (3.5-5.1)
[2023-09-28 08:31] VITALS: BP 130/74; PULSE 73; RESP 16
[2023-09-28] MEDS: ALPRAZOLAM 1 MG TAB PO SCH (09:00)
[2023-09-28 11:54] VITALS: BP 208/107; PULSE 79; RESP 17
[2023-09-28 11:56] VITALS: BP 170/89
[2023-09-28] MEDS ORDERED: HYDRALAZINE 20MG/ML VIAL IV PRN (12:30)
[2023-09-28] MEDS ORDERED: LIDOCAINE 4% ADH..PATCH TP ONE (12:30)
[2023-09-28] MEDS: CEFTRIAXONE 1G VIAL IVPB SCH (13:46)
== END 2023-09-28 18:15 | disposition left against medical advice (07) | DRG 282 ==
LOC: EDH 08:38 → EDHIP 08:39 → WSH 22:34 → 2BH 09-26 09:37 → 3AH 09-26 15:15
PROVIDERS: ADMIT Hospitalist; ATTEND Hospitalist
DX: K85.90 Acute pancreatitis without necrosis or infection, unspecified (principal); E11.43 Type 2 diabetes mellitus with diabetic autonomic (poly)neuropathy; K31.84 Gastroparesis; F32.A Depression, unspecified; N39.0 Urinary tract infection, site not specified; G89.29 Other chronic pain; F41.9 Anxiety disorder, unspecified; Z53.29 Procedure and treatment not carried out because of patient's decision for other reasons; K08.89 Other specified disorders of teeth and supporting structures; Z79.899 Other long term (current) drug therapy; Z91.410 Personal history of adult physical and sexual abuse; Z88.8 Allergy status to other drugs, medicaments and biological substances; Z90.49 Acquired absence of other specified parts of digestive tract
CPT/HCPCS: 36415; 74176; 80053; 80061; 80076; 80305; 81001; 82150; 82948; 83036; 83690; 84703; 85025; 85027; 87040; 87088; 96365; 96375; G0378; J0360; J0696; J1170; J1815; J1885; J2060; J2270; J2405; J2765

== ENCOUNTER 2024-08-28 06:12 | Day surgery (SDC) | payer MEDICAID ==
[~2024-08-28] VITALS: Ht 149.9 cm; Wt 74.4 kg
[2024-08-28] VITALS (10 sets, daily range): BP systolic 100–141; BP diastolic 55–84; PULSE 74–84; RESP 16–17; TEMP 97.4–98
[~2024-08-28 06:12] MED LIST changes: +ALPR1TAB7 PO; -AMYL1CAP61 PO; -CLON0.2T PO; -DICY-20 PO; -GABA300C PO; -LORA2ORA5 PO; -METO10TA41 PO; +ONDA-245 PO; -ONDA4TAB10 PO; -ONDA8TAB12 PO; -PANT40TA PO; +QUET25TA PO; -SULF1TAB42 PO
[2024-08-28] MEDS ORDERED: METO10TA3 PO (07:17)
[2024-08-28] MEDS ORDERED: INSU100V IV (07:17)
[2024-08-28] MEDS ORDERED: PROP10TA10 PO (07:17)
[2024-08-28] MEDS ORDERED: HYDR-3421 PO (07:17)
[2024-08-28] MEDS ORDERED: CELE-146 PO (07:17)
[2024-08-28] MEDS ORDERED: PROM25TA7 PO (07:17)
[2024-08-28] MEDS ORDERED: INSU100V37 SQ (07:17)
[2024-08-28] MEDS: 0.9%NACL 1000ML 1,000 ML IV ONE (08:35)
[2024-08-28] MEDS ORDERED: LIDOCAINE HCL 1% 20 ML VIAL ONE (08:49)
[2024-08-28] MEDS ORDERED: proPOFol 10 MG/ML 20ML VIAL IV ONE (08:49)
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
== END 2024-08-28 10:19 | disposition home or self-care (01) ==
LOC: ENDO 06:12 → DAH 06:12 → ENDO 10:19
PROVIDERS: ATTEND Internal Medicine
DX: R14.0 Abdominal distension (gaseous) (principal); R11.2 Nausea with vomiting, unspecified; K31.84 Gastroparesis; I85.10 Secondary esophageal varices without bleeding; R11.15 Cyclical vomiting syndrome unrelated to migraine; I10 Essential (primary) hypertension; E66.9 Obesity, unspecified; Z90.49 Acquired absence of other specified parts of digestive tract; Z68.33 Body mass index [BMI] 33.0-33.9, adult; E10.8 Type 1 diabetes mellitus with unspecified complications; Z79.4 Long term (current) use of insulin; Z79.899 Other long term (current) drug therapy
CPT/HCPCS: 43235; 82948; 81025; J7030; J2704; A4620; A4215 ×2; A4223; A4222; A4221; A4663; A4606; J3490

== ENCOUNTER 2025-07-11 19:55 | Emergency (ER) | payer MEDICAID ==
[~2025-07-11] VITALS: Ht 154.9 cm; Wt 68.5 kg
[~2025-07-11 19:55] MED LIST changes: -ALPR1TAB7 PO; +CELE-146 PO; +HYDR-3421 PO; +INSU100V IV; +INSU100V37 SQ; +METO10TA3 PO; -ONDA-245 PO; +PROP10TA10 PO; -QUET25TA PO; -TRAM50TA4 PO
[2025-07-11 19:57] VITALS: TEMP 98.1
[2025-07-11 20:25] LABS: IMMATURE GRANULOCYTE ABSOLUTE 0.02 K/uL (0-1); NUCLEATED RED BLOOD CELLS 0.0 % (0.0-0.19); PLATELET COUNT (AUTO) 276 K/uL (130-400); RED BLOOD CELL COUNT(AUTO) 3.86 MIL/uL (4.00-5.50); RED CELL DISTRIBUTION WIDTH 14.6 % (11.0-15.5); WHITE BLOOD COUNT (AUTO) 8.9 K/uL (4.8-10.8)
[2025-07-11 20:30] VITALS: BP 133/83; PULSE 87; RESP 18; O2SAT 97
[2025-07-11 20:39] LABS: ASPARTATE AMINOTRANSFERASE 27.0 U/L (10-37); CREATININE 1.2 mg/dL (0.5-1.0); GLOMERULAR FILTR. RATE CALC 61.0 mL/min (>90); GLUCOSE,RANDOM 168.0 mg/dL (70-105); SODIUM SERUM 139.0 mmol/L (136-145); TOTAL PROTEIN, SERUM 6.7 g/dL (6.0-8.3); UREA NITROGEN, BLOOD 11.0 mg/dL (7-18)
[2025-07-11 20:45] LABS: APPEARANCE,URINE CLOUDY (CLEAR); GLUCOSE, URINE (UA) NEGATIVE (NEGATIVE); HCG,QUALITATIVE URINE NEGATIVE (NEGATIVE); LEUKOCYTE ESTERASE ,URINE 25 Leu/uL (NEGATIVE); NITRATE,URINE NEGATIVE (NEGATIVE); OCCULT BLOOD,URINE LARGE (NEGATIVE)
[2025-07-11 20:46] LABS: ADD UA MICROSCOPIC YES
[2025-07-11 20:50] LABS: AMPHET/METH SCREEN,URINE NEGATIVE (NEGATIVE); BARBITURATE SCREEN, URINE NEGATIVE (NEGATIVE); CANNABINOID SCREEN,URINE POSITIVE (NEGATIVE); COCAINE SCREEN,URINE NEGATIVE (NEGATIVE)
[2025-07-11 20:53] LABS: SQUAMOUS EPITHELIAL CELL,UR MOD /HPF (0-2)
--- NOTE | 2025-07-11 21:12 | NUR ---
TRIAGE EDIT TO REFLECT UDS
[2025-07-11] MEDS: 0.9%NACL 1000ML 1,000 ML IV ONE (21:20)
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
--- NOTE | 2025-07-11 22:21 | NUR ---
PATIENT REQUESTS TO HAVE IV REMOVED, DECIDES TO GO HOME BEFORE DISPOSITION DONE BY ED PHYSICIAN
== END 2025-07-11 22:51 | disposition home or self-care (01) ==
LOC: EDH 19:55
DX: K86.1 Other chronic pancreatitis (principal); R10.84 Generalized abdominal pain; F19.10 Other psychoactive substance abuse, uncomplicated; F41.9 Anxiety disorder, unspecified; E11.9 Type 2 diabetes mellitus without complications; M19.90 Unspecified osteoarthritis, unspecified site; Z79.4 Long term (current) use of insulin; Z90.49 Acquired absence of other specified parts of digestive tract
CPT/HCPCS: 99284; 96374; 96375; 80076; 80048; 80305; 83690; 85025; 81025; 36415; 81001; J7030; J2405; J2270